=== PATIENT | female | born 1965 | race Caucasian/White ===

== ENCOUNTER → 2020-05-01 | Outpatient (CLI) | payer OTHER ==
[2020-05-01 14:35] LABS: BASOPHILS ABSOLUTE AUTO 0.04 K/mm3 (0.00-0.23); BASOPHILS PERCENT AUTO 1 % (0-2); EOSINOPHILS ABSOLUTE AUTO 0.11 K/mm3 (0.00-0.68); EOSINOPHILS PERCENT AUTO 2 % (0-6); Hematocrit 44.2 % (33.0-51.0); Hemoglobin 14.6 g/dL (11.5-16.0); IMMATURE GRAN ABSOLUTE AUTO 0.01 K/mm3 (0.00-0.10); IMMATURE GRAN PERCENT AUTO 0 % (0-1); LYMPHOCYTES ABSOLUTE AUTO 2.28 K/mm3 (0.84-5.20); LYMPHOCYTES PERCENT AUTO 34 % (21-46); MONOCYTES ABSOLUTE AUTO 0.56 K/mm3 (0.16-1.47); MONOCYTES PERCENT AUTO 8 % (4-13); Mean Corpuscular HGB 31.1 pg (26.0-34.0); Mean Corpuscular Volume 94 fL (80-100); Mean Platelet Volume 11.4 fL (9.1-12.4); NEUTROPHILS ABSOLUTE AUTO 3.77 K/mm3 (1.96-9.15); NEUTROPHILS PERCENT AUTO 56 % (41-73); Platelet Count 212 K/mm3 (150-400); RDW Coefficient Variation 12.2 % (11.7-14.2); RDW Standard Deviation 42.4 fL (35.1-46.3); Red Blood Cell Count 4.69 M/mm3 (3.80-5.20); White Blood Cell Count 6.77 K/mm3 (4.00-11.30)
[2020-05-01 15:07] LABS: Alanine Aminotransfer (ALT/SGP 43 U/L (12-78); Albumin, Blood 3.9 g/dL (3.4-5.0); Albumin/Globulin Ratio 1.1 (0.8-1.8); Alk Phos 103 U/L (50-136); Anion Gap 6 mmol/L (6-16); Aspartate Aminotrans (AST/SGOT 20 U/L (12-37); Bilirubin, Total 0.5 mg/dL (0.1-1.0); Blood Urea Nitrogen 9 mg/dL (8-24); Bun/Creatinine Ratio 14.5 (12.0-20.0); CO2, Blood 27 mmol/L (21-32); Calcium, Blood 8.9 mg/dL (8.5-10.1); Chloride, Blood 107 mmol/L (98-108); Creatinine, Blood 0.62 mg/dL (0.40-1.00); Globulin, Blood 3.5 g/dL (2.2-4.0); Glomerular Filtration Rate >60 (60-); Glucose, Blood 109 mg/dL (70-99); Potassium, Blood 3.7 mmol/L (3.5-5.5); Sodium, Blood 140 mmol/L (136-145); Total Protein, Blood 7.4 g/dL (6.4-8.2)
== END | disposition home or self-care (01) ==
LOC: LAB 14:19 → LAB SHORT 14:19
PROVIDERS: Physician Assistant
DX: M53.83 Other specified dorsopathies, cervicothoracic region (principal); M54.2 Cervicalgia
CPT/HCPCS: 80053; 84443; 85025

== ENCOUNTER 2021-07-08 13:11 | Inpatient (IN) | payer OTHER ==
[~2021-07-08] VITALS: Ht 170.2 cm; Wt 94.8 kg
[2021-07-08 14:03] LABS: BASOPHILS ABSOLUTE AUTO 0.03 K/mm3 (0.00-0.23); BASOPHILS PERCENT AUTO 0 % (0-2); EOSINOPHILS ABSOLUTE AUTO 0.08 K/mm3 (0.00-0.68); EOSINOPHILS PERCENT AUTO 1 % (0-6); Hematocrit 41.6 % (33.0-51.0); Hemoglobin 14.4 g/dL (11.5-16.0); IMMATURE GRAN ABSOLUTE AUTO 0.03 K/mm3 (0.00-0.10); IMMATURE GRAN PERCENT AUTO 0 % (0-1); LYMPHOCYTES ABSOLUTE AUTO 0.93 K/mm3 (0.84-5.20); LYMPHOCYTES PERCENT AUTO 10 % (21-46); MONOCYTES ABSOLUTE AUTO 0.78 K/mm3 (0.16-1.47); MONOCYTES PERCENT AUTO 8 % (4-13); Mean Corpuscular HGB 31.3 pg (26.0-34.0); Mean Corpuscular HGB Conc 34.6 g/dL (31.5-36.5); Mean Corpuscular Volume 90 fL (80-100); Mean Platelet Volume 10.3 fL (9.1-12.4); NEUTROPHILS ABSOLUTE AUTO 7.88 K/mm3 (1.96-9.15); NEUTROPHILS PERCENT AUTO 81 % (41-73); Platelet Count 216 K/mm3 (150-400); RDW Coefficient Variation 12.6 % (11.7-14.2); RDW Standard Deviation 41.6 fL (35.1-46.3); White Blood Cell Count 9.73 K/mm3 (4.00-11.30)
[2021-07-08 14:24] LABS: Alanine Aminotransfer (ALT/SGP 41 U/L (12-78); Albumin, Blood 2.7 g/dL (3.4-5.0); Albumin/Globulin Ratio 0.6 (0.8-1.8); Alk Phos 124 U/L (50-136); Anion Gap 9 mmol/L (6-16); Aspartate Aminotrans (AST/SGOT 24 U/L (12-37); Bilirubin, Total 1.4 mg/dL (0.1-1.0); Blood Urea Nitrogen 8 mg/dL (8-24); CO2, Blood 25 mmol/L (21-32); Calcium, Blood 8.6 mg/dL (8.5-10.1); Chloride, Blood 101 mmol/L (98-108); Creatinine, Blood 0.53 mg/dL (0.40-1.00); Globulin, Blood 4.5 g/dL (2.2-4.0); Glomerular Filtration Rate >60 (60-); Glucose, Blood 252 mg/dL (70-99); Potassium, Blood 3.4 mmol/L (3.5-5.5); Sodium, Blood 135 mmol/L (136-145); Total Protein, Blood 7.2 g/dL (6.4-8.2); Troponin I <0.015 ng/mL (0.000-0.040)
--- NOTE | 2021-07-09 04:52 | NUR ---
SHIFT SUMMARY A/OX4, IND TO BATHROOM. PLEASANT AND COOPERATIVE WITH CARE. CURRENTLY ON RA. VSS, NO ACUTE CHANGES AT THIS TIME. BED IN LOWEST POSITION WITH CALL LIGHT IN REACH. WILL CONTINUE TO MONITOR AND REPORT TO ONCOMING RN.
[2021-07-09 05:20] LABS: BASOPHILS ABSOLUTE AUTO 0.01 K/mm3 (0.00-0.23); BASOPHILS PERCENT AUTO 0 % (0-2); EOSINOPHILS PERCENT AUTO 0 % (0-6); Hemoglobin 12.5 g/dL (11.5-16.0); IMMATURE GRAN ABSOLUTE AUTO 0.03 K/mm3 (0.00-0.10); IMMATURE GRAN PERCENT AUTO 0 % (0-1); LYMPHOCYTES ABSOLUTE AUTO 0.96 K/mm3 (0.84-5.20); LYMPHOCYTES PERCENT AUTO 14 % (21-46); MONOCYTES ABSOLUTE AUTO 0.31 K/mm3 (0.16-1.47); MONOCYTES PERCENT AUTO 4 % (4-13); Mean Corpuscular HGB 31.3 pg (26.0-34.0); Mean Corpuscular HGB Conc 33.8 g/dL (31.5-36.5); Mean Corpuscular Volume 93 fL (80-100); NEUTROPHILS ABSOLUTE AUTO 5.71 K/mm3 (1.96-9.15); NEUTROPHILS PERCENT AUTO 81 % (41-73); Platelet Count 186 K/mm3 (150-400); RDW Coefficient Variation 12.6 % (11.7-14.2); RDW Standard Deviation 41.7 fL (35.1-46.3); White Blood Cell Count 7.02 K/mm3 (4.00-11.30)
[2021-07-09 06:12] LABS: Alanine Aminotransfer (ALT/SGP 38 U/L (12-78); Albumin, Blood 2.4 g/dL (3.4-5.0); Albumin/Globulin Ratio 0.6 (0.8-1.8); Alk Phos 115 U/L (50-136); Anion Gap 9 mmol/L (6-16); Aspartate Aminotrans (AST/SGOT 20 U/L (12-37); Bilirubin, Total 0.9 mg/dL (0.1-1.0); Blood Urea Nitrogen 9 mg/dL (8-24); Bun/Creatinine Ratio 19.4 (12.0-20.0); CHOL/HDL RATIO 6.2; CO2, Blood 23 mmol/L (21-32); Calcium, Blood 8.3 mg/dL (8.5-10.1); Chloride, Blood 105 mmol/L (98-108); Cholesterol 179 mg/dL (50-200); Creatinine, Blood 0.46 mg/dL (0.40-1.00); Globulin, Blood 4.1 g/dL (2.2-4.0); Glomerular Filtration Rate >60 (60-); Glucose, Blood 269 mg/dL (70-99); HDL Cholesterol 29 mg/dL (>39); Low Density Lipoprotein Chol 117 mg/dL (0-110); Magnesium, Blood 1.9 mg/dL (1.6-2.4); Potassium, Blood 3.9 mmol/L (3.5-5.5); Sodium, Blood 137 mmol/L (136-145); Total Protein, Blood 6.5 g/dL (6.4-8.2); Triglycerides 163 mg/dL (30-160); Very Low Density Lipoprot Chol 32 mg/dL (6-32)
--- NOTE | 2021-07-09 19:12 | NUR ---
SHIFT SUMMARY PT ADMITTED FOR COVID 19 AND IS ON ROOM AIR. SHE HAS PERIODS OF DIZZINESS WHEN GETTING UP AND CALLS TO HAVE A STAND BY ASSIST TO THE BATHROOM. WILL POSSIBLY DC HOME TOMORROW. VSTerry. WILL REPORT TO HAYDE BRAVO.
[2021-07-10 05:08] LABS: Hematocrit 34.3 % (33.0-51.0); Hemoglobin 11.6 g/dL (11.5-16.0); Mean Corpuscular HGB 30.8 pg (26.0-34.0); Mean Corpuscular HGB Conc 33.8 g/dL (31.5-36.5); Mean Corpuscular Volume 91 fL (80-100); Mean Platelet Volume 10.5 fL (9.1-12.4); Platelet Count 194 K/mm3 (150-400); RDW Coefficient Variation 12.4 % (11.7-14.2); RDW Standard Deviation 41.1 fL (35.1-46.3); Red Blood Cell Count 3.77 M/mm3 (3.80-5.20); White Blood Cell Count 8.46 K/mm3 (4.00-11.30)
[2021-07-10 05:48] LABS: Alanine Aminotransfer (ALT/SGP 37 U/L (12-78); Albumin, Blood 2.4 g/dL (3.4-5.0); Albumin/Globulin Ratio 0.6 (0.8-1.8); Alk Phos 99 U/L (50-136); Anion Gap 5 mmol/L (6-16); Aspartate Aminotrans (AST/SGOT 21 U/L (12-37); Bilirubin, Total 0.5 mg/dL (0.1-1.0); Blood Urea Nitrogen 15 mg/dL (8-24); Bun/Creatinine Ratio 25.6 (12.0-20.0); CO2, Blood 27 mmol/L (21-32); Calcium, Blood 8.1 mg/dL (8.5-10.1); Chloride, Blood 106 mmol/L (98-108); Creatinine, Blood 0.59 mg/dL (0.40-1.00); Globulin, Blood 3.7 g/dL (2.2-4.0); Glomerular Filtration Rate >60 (60-); Glucose, Blood 284 mg/dL (70-99); Potassium, Blood 3.7 mmol/L (3.5-5.5); Sodium, Blood 138 mmol/L (136-145); Total Protein, Blood 6.1 g/dL (6.4-8.2)
--- NOTE | 2021-07-10 19:18 | NUR ---
SHIFT SUMMARY NO ACUTE CHANGES THIS SHIFT. PT CONTINUES TO IMPROVE AND REMAINS ON ROOM AIR. WORKED WITH PHYSICAL THERAPY TODAY AND PHYSICAL THERAPY RECOMMENDS USING A CANE TO AMBULATE. VSS. WILL REPORT TO ONCOMING RN.
[2021-07-11] MEDS ORDERED: Acetaminophen650 M1 PO (11:40)
[2021-07-11] MEDS ORDERED: FAMO20 PO (11:41)
[2021-07-11] MEDS ORDERED: SEMGLEE PE100 UNIT/1 SC (11:43)
[2021-07-11] MEDS ORDERED: METF500 PO (11:44)
[2021-07-11] MEDS ORDERED: DEXA6 PO (11:44)
[2021-07-11] MEDS ORDERED: XARELTO20 MG PO ×2 (11:47)
--- NOTE | 2021-07-11 16:01 | NUR ---
DISCHARGE SUMMARY PT A/O X4 AND ADMITTED FOR COVID 19. NOT SHOWING ANY COVID SYMPTOMS. EDUCATED ON INSULIN ADMINISTRATION AND NEW MEDICATOIN MANAGEMENT PRIOR TO DISCHARGE. HARD PRESCRIPTION GIVEN FOR NEW GLUCOMETER AND STRIPS WELL CANE. EDUCATION AND HANDOUTS PROVIDED TO PT. PT VERBALIZED UNDERSTANDING. DC'D HOME.
== END 2021-07-11 14:30 | disposition home health service (06) | DRG 177 ==
LOC: ER 13:11 → MEDS 17:08
PROVIDERS: Physician Assistant; ADMIT Internal Medicine
PROC: 8E0ZXY6 Isolation (ICD-10-PCS; principal; 2021-07-08)
PROC: 3E0333Z Introduction of Anti-inflammatory into Peripheral Vein, Percutaneous Approach (ICD-10-PCS; 2021-07-08)
DX: U07.1 COVID-19 (principal); J12.82 Pneumonia due to coronavirus disease 2019; I26.99 Other pulmonary embolism without acute cor pulmonale; I82.412 Acute embolism and thrombosis of left femoral vein; I82.432 Acute embolism and thrombosis of left popliteal vein; I82.4Z2 Acute embolism and thrombosis of unspecified deep veins of left distal lower extremity; E66.9 Obesity, unspecified; E04.1 Nontoxic single thyroid nodule; K21.9 Gastro-esophageal reflux disease without esophagitis; F41.9 Anxiety disorder, unspecified; E11.9 Type 2 diabetes mellitus without complications; Z88.5 Allergy status to narcotic agent; Z88.2 Allergy status to sulfonamides; Z88.8 Allergy status to other drugs, medicaments and biological substances; Z91.038 Other insect allergy status; Z68.31 Body mass index [BMI] 31.0-31.9, adult; Z90.49 Acquired absence of other specified parts of digestive tract; Z98.890 Other specified postprocedural states
CPT/HCPCS: 36415; 71260; 80053; 80061; 82947; 83036; 83605; 83735; 84484; 85025; 85027; 85379; 86140; 87040; 93005; 93010; 93970; 96374; 96375; 97110; 97162; 99285-25; A9270; J1100; J1650; J2405; J7030; Q9967

== ENCOUNTER 2021-07-15 11:08 | Emergency (ER) | payer OTHER ==
[~2021-07-15] VITALS: Ht 170.2 cm; Wt 99.8 kg
[~2021-07-15 11:08] MED LIST: Acetaminophen650 M1 PO; DEXA6 PO; FAMO20 PO; METF500 PO; SEMGLEE PE100 UNIT/1 SC; XARELTO20 MG PO
[2021-07-15 11:48] LABS: BASOPHILS ABSOLUTE AUTO 0.04 K/mm3 (0.00-0.23); BASOPHILS PERCENT AUTO 0 % (0-2); EOSINOPHILS PERCENT AUTO 0 % (0-6); Hematocrit 40.8 % (33.0-51.0); Hemoglobin 13.8 g/dL (11.5-16.0); IMMATURE GRAN ABSOLUTE AUTO 0.13 K/mm3 (0.00-0.10); IMMATURE GRAN PERCENT AUTO 1 % (0-1); LYMPHOCYTES ABSOLUTE AUTO 1.23 K/mm3 (0.84-5.20); LYMPHOCYTES PERCENT AUTO 11 % (21-46); MONOCYTES ABSOLUTE AUTO 0.77 K/mm3 (0.16-1.47); MONOCYTES PERCENT AUTO 7 % (4-13); Mean Corpuscular HGB 30.7 pg (26.0-34.0); Mean Corpuscular HGB Conc 33.8 g/dL (31.5-36.5); Mean Corpuscular Volume 91 fL (80-100); Mean Platelet Volume 10.9 fL (9.1-12.4); NEUTROPHILS ABSOLUTE AUTO 8.99 K/mm3 (1.96-9.15); NEUTROPHILS PERCENT AUTO 81 % (41-73); Platelet Count 168 K/mm3 (150-400); RDW Coefficient Variation 13.2 % (11.7-14.2); RDW Standard Deviation 43.8 fL (35.1-46.3); Red Blood Cell Count 4.49 M/mm3 (3.80-5.20); White Blood Cell Count 11.16 K/mm3 (4.00-11.30)
[2021-07-15 12:05] LABS: Alanine Aminotransfer (ALT/SGP 58 U/L (12-78); Albumin, Blood 2.6 g/dL (3.4-5.0); Albumin/Globulin Ratio 0.5 (0.8-1.8); Alk Phos 128 U/L (50-136); Anion Gap 8 mmol/L (6-16); Aspartate Aminotrans (AST/SGOT 38 U/L (12-37); Bilirubin, Total 0.9 mg/dL (0.1-1.0); Blood Urea Nitrogen 9 mg/dL (8-24); Bun/Creatinine Ratio 16.2 (12.0-20.0); CO2, Blood 25 mmol/L (21-32); Calcium, Blood 8.6 mg/dL (8.5-10.1); Chloride, Blood 98 mmol/L (98-108); Creatinine, Blood 0.56 mg/dL (0.40-1.00); Glomerular Filtration Rate >60 (60-); Glucose, Blood 253 mg/dL (70-99); Potassium, Blood 3.7 mmol/L (3.5-5.5); Sodium, Blood 131 mmol/L (136-145); Total Protein, Blood 7.6 g/dL (6.4-8.2)
[2021-07-15] MEDS ORDERED: ONDA4ODT MM (14:13)
[2021-07-15] MEDS ORDERED: MAGNESIUM OXID500 MG PO (14:13)
== END 2021-07-15 14:35 | disposition home or self-care (01) ==
LOC: ER 11:08
PROVIDERS: Emergency Medicine
DX: R11.2 Nausea with vomiting, unspecified (principal); R19.7 Diarrhea, unspecified; E11.9 Type 2 diabetes mellitus without complications; I49.3 Ventricular premature depolarization; Z86.718 Personal history of other venous thrombosis and embolism; Z86.711 Personal history of pulmonary embolism; Z91.030 Bee allergy status; Z88.2 Allergy status to sulfonamides; Z88.5 Allergy status to narcotic agent; Z88.1 Allergy status to other antibiotic agents; Z79.899 Other long term (current) drug therapy; Z79.4 Long term (current) use of insulin; Z79.01 Long term (current) use of anticoagulants
CPT/HCPCS: 80053; 82947; 83735; 85025; 96360; 99284-25; A9270; J7030

== ENCOUNTER 2021-07-19 17:03 | Inpatient (IN) | payer OTHER ==
[~2021-07-19] VITALS: Ht 170.2 cm; Wt 93.4 kg
[~2021-07-19 17:03] MED LIST changes: +MAGNESIUM OXID500 MG PO; +ONDA4ODT MM
[2021-07-19 18:36] LABS: Hematocrit 28.4 % (33.0-51.0); Hemoglobin 9.3 g/dL (11.5-16.0); Mean Corpuscular HGB 30.5 pg (26.0-34.0); Mean Corpuscular HGB Conc 32.7 g/dL (31.5-36.5); Mean Corpuscular Volume 93 fL (80-100); Mean Platelet Volume 11.1 fL (9.1-12.4); Platelet Count 224 K/mm3 (150-400); RDW Coefficient Variation 13.7 % (11.7-14.2); RDW Standard Deviation 46.4 fL (35.1-46.3); Red Blood Cell Count 3.05 M/mm3 (3.80-5.20); White Blood Cell Count 12.23 K/mm3 (4.00-11.30)
[2021-07-19 19:03] LABS: Free Thyroxine 1.17 ng/dL (0.70-1.60)
[2021-07-19 19:04] LABS: BAND PERCENT MAN 13 % (0-8); BASOPHILS PERCENT MAN 0 % (0-2); EOSINOPHILS PERCENT MAN 0 % (0-6); LYMPHOCYTES ABSOLUTE MAN 0.61 K/mm3 (0.84-5.20); LYMPHOCYTES PERCENT MAN 5 % (21-46); MONOCYTES PERCENT MAN 9 % (4-13); MYELOCYTE ABSOLUTE MAN 0.12 K/mm3 (0.00-0.00); MYELOCYTE PERCENT MAN 1 % (0-0); NEUTROPHILS ABSOLUTE MAN 10.39 K/mm3 (1.96-9.15); SEG NEUTROPHILS PERCENT MAN 72 % (41-73); TOTAL CELLS COUNTED 100
[2021-07-19 19:06] LABS: Source, Urine Clean Catch
[2021-07-19 19:06] LABS: Thyroid Stimulating Hormone 0.782 uIU/mL (0.360-4.800)
[2021-07-19 19:08] LABS: Bilirubin, Urine Neg (Neg); Blood, Urine 5+ (Neg); Glucose Qualitative, Urine 4+ (Neg); Ketones, Urine 2+ (Neg); Leukocyte Esterase, Urine 3+ (Neg); Nitrite, Urine Pos (Neg); Protein, Urine 3+ (Neg); Urobilinogen, Urine NORM (Normal)
[2021-07-19 19:16] LABS: Appearance, Urine Hazy (Clear); Color, Urine Yellow (P-Yellow)
[2021-07-19 19:17] LABS: Bacteria Many /hpf; Squamous Epithelial Cells Rare /hpf (Few); White Blood Cells, Urine TNTC /hpf (0-5)
[2021-07-19 19:41] LABS: Alanine Aminotransfer (ALT/SGP 122 U/L (12-78); Albumin, Blood 1.9 g/dL (3.4-5.0); Albumin/Globulin Ratio 0.4 (0.8-1.8); Alk Phos 203 U/L (50-136); Anion Gap 11 mmol/L (6-16); Aspartate Aminotrans (AST/SGOT 104 U/L (12-37); Bilirubin, Total 0.9 mg/dL (0.1-1.0); Blood Urea Nitrogen 14 mg/dL (8-24); Bun/Creatinine Ratio 23.6 (12.0-20.0); CO2, Blood 25 mmol/L (21-32); Calcium, Blood 8.8 mg/dL (8.5-10.1); Chloride, Blood 95 mmol/L (98-108); Creatinine, Blood 0.59 mg/dL (0.40-1.00); Globulin, Blood 5.3 g/dL (2.2-4.0); Glomerular Filtration Rate >60 (60-); Glucose, Blood 273 mg/dL (70-99); Potassium, Blood 3.7 mmol/L (3.5-5.5); Sodium, Blood 131 mmol/L (136-145); Total Protein, Blood 7.2 g/dL (6.4-8.2)
[2021-07-20 04:52] LABS: Hematocrit 31.5 % (33.0-51.0); Hemoglobin 10.4 g/dL (11.5-16.0); Mean Corpuscular HGB 30.5 pg (26.0-34.0); Mean Corpuscular Volume 92 fL (80-100); Mean Platelet Volume 10.3 fL (9.1-12.4); Platelet Count 141 K/mm3 (150-400); RDW Coefficient Variation 13.9 % (11.7-14.2); RDW Standard Deviation 47.1 fL (35.1-46.3); Red Blood Cell Count 3.41 M/mm3 (3.80-5.20); White Blood Cell Count 8.57 K/mm3 (4.00-11.30)
[2021-07-20 05:19] LABS: Alanine Aminotransfer (ALT/SGP 94 U/L (12-78); Albumin, Blood 2.1 g/dL (3.4-5.0); Albumin/Globulin Ratio 0.5 (0.8-1.8); Alk Phos 156 U/L (50-136); Anion Gap 7 mmol/L (6-16); Aspartate Aminotrans (AST/SGOT 81 U/L (12-37); Blood Urea Nitrogen 14 mg/dL (8-24); Bun/Creatinine Ratio 23.6 (12.0-20.0); CO2, Blood 25 mmol/L (21-32); Calcium, Blood 7.7 mg/dL (8.5-10.1); Chloride, Blood 102 mmol/L (98-108); Creatinine, Blood 0.59 mg/dL (0.40-1.00); Globulin, Blood 4.3 g/dL (2.2-4.0); Glomerular Filtration Rate >60 (60-); Glucose, Blood 207 mg/dL (70-99); Potassium, Blood 3.2 mmol/L (3.5-5.5); Sodium, Blood 134 mmol/L (136-145); Total Protein, Blood 6.4 g/dL (6.4-8.2)
[2021-07-20 05:50] LABS: BAND PERCENT MAN 26 % (0-8); BASOPHILS PERCENT MAN 0 % (0-2); EOSINOPHILS PERCENT MAN 0 % (0-6); LYMPHOCYTES ABSOLUTE MAN 1.54 K/mm3 (0.84-5.20); LYMPHOCYTES PERCENT MAN 18 % (21-46); MONOCYTES ABSOLUTE MAN 0.08 K/mm3 (0.16-1.47); MONOCYTES PERCENT MAN 1 % (4-13); MYELOCYTE ABSOLUTE MAN 0.17 K/mm3 (0.00-0.00); MYELOCYTE PERCENT MAN 2 % (0-0); NEUTROPHILS ABSOLUTE MAN 6.77 K/mm3 (1.96-9.15); SEG NEUTROPHILS PERCENT MAN 53 % (41-73); TOTAL CELLS COUNTED 100
--- NOTE | 2021-07-20 06:23 | NUR ---
SHIFT SUMMARY PATIENT ARRIVED TO ROOM 310 VIA STRETCHER AT 5. SHE IS ALERT AND ORIENTED X4. IS WEAK AND REQUIRES A 1 ASSIST TO THE BEDSIDE COMMODE. MEDICATED PER EMAR FOR PAIN. IV PATENT AND INFUSING. BED IN LOWEST POSITION WITH WHEELS LOCKED. CALL LIGHT WITHIN REACH. REPORT GIVEN TO ONCOMING RN.
--- NOTE | 2021-07-20 08:14 | NUR ---
PT HAS 100.8 TEMP. TYLENOL GIVEN. PT ALSO HAD O2 SATS AT 87% ON RA. REAPPLIED O2 AT 2.5 LPM VIA NC. O2 SATS AT 97%.
--- NOTE | 2021-07-20 18:02 | NUR ---
TELE REPORTED PT HAD A RUN WITH BIGEMENY AND PVC'S. PT ASYMPTOMATIC AT THIS TIME. DENIES CP AND IS IN NO APPARENT DISTRESS.
--- NOTE | 2021-07-20 19:49 | NUR ---
SHIFT SUMMARY: PT A/O X 3. PT HAD NO ACUTE EVENTS TODAY. TYLENOL GIVEN FOR FEVER THIS AM AND WAS EFFECTIVE. PT TOLERATING VANCO. PT REPORTED HEADACHE TODAY WHICH TYLENOL WAS GIVEN FOR AND EFFECTIVE. PT DID NOT EAT WELL TODAY BUT DRANK FLUIDS WELL. URINE RUSTY COLORED.
--- NOTE | 2021-07-21 04:44 | NUR ---
SHIFT SUMMARY ADMITTED FOR SEPSIS/UTI. FULL CODE. PT GIVEN A DOSE OF IV ANTIBIOTICS. PT RESTED ALL NIGHT. COMPLAINED OF CHRONIC NECK PAIN BUT WAS ASLEEP WHEN THIS RN ASKED ABOUT PAIN MEDICATION. NO OTHER CONCERNS THIS SHIFT.
[2021-07-21 15:52] LABS: Vancomycin, Trough 13.7 ug/mL (5.0-10.0)
--- NOTE | 2021-07-21 18:05 | NUR ---
SHIFT SUMMARY: PT A/O X 3 STANDBY ASSIST TO BSC. PT HAD TEMPERATURE OF 102.5 TODAY. TYLENOL EFFECTIVE. PT CONTINUES TO HAVE C/O NECK PAIN WITH TYLENOL EFFECTIVE IN TREATING PAIN. NO OTHER ACUTE CONCERNS AT THIS TIME.
[2021-07-22 05:12] LABS: Hemoglobin 10.3 g/dL (11.5-16.0); Mean Corpuscular HGB 30.6 pg (26.0-34.0); Mean Corpuscular HGB Conc 33.2 g/dL (31.5-36.5); Mean Corpuscular Volume 92 fL (80-100); Mean Platelet Volume 11.6 fL (9.1-12.4); Platelet Count 116 K/mm3 (150-400); RDW Coefficient Variation 13.8 % (11.7-14.2); RDW Standard Deviation 46.7 fL (35.1-46.3); Red Blood Cell Count 3.37 M/mm3 (3.80-5.20); White Blood Cell Count 6.58 K/mm3 (4.00-11.30)
--- NOTE | 2021-07-22 05:12 | NUR ---
SHIFT SUMMARY PT HAS BEEN RESTLESS THIS SHIFT, SLEEPING ON AND OFF. THE MAJORITY OF THE TIME WHEN I ROUND ON PT SHE DECLINES NEEDS. INTERMITTENT NAUSEA THIS SHIFT WITH DRY HEAVES, MEDICATED WITH ZOFRAN. PT IS VERY WEAK AND REQUIRES ASSISTANCE TO THE BEDSIDE COMMODE. IV ANITIBIOTICS CONTINUED ORDERED. VITALS STABLE AND TRENDING AROUND PT BASELINE SINCE ADMISSION. NO HIGH FEVERS THIS SHIFT. PT A/OX4, BUT IS SLOW IN HER RESPONSES. NO ACUTE CHANGES OVERNIGHT. BED IN LOWEST POSITION, CALL LIGHT WITHIN REACH.
[2021-07-22 05:35] LABS: Albumin, Blood 1.8 g/dL (3.4-5.0); Anion Gap 7 mmol/L (6-16); Blood Urea Nitrogen 11 mg/dL (8-24); Bun/Creatinine Ratio 19.2 (12.0-20.0); CO2, Blood 28 mmol/L (21-32); Calcium, Blood 8.1 mg/dL (8.5-10.1); Chloride, Blood 102 mmol/L (98-108); Creatinine, Blood 0.57 mg/dL (0.40-1.00); Glomerular Filtration Rate >60 (60-); Glucose, Blood 273 mg/dL (70-99); Magnesium, Blood 2.1 mg/dL (1.6-2.4); Phosphorus, Blood 2.5 mg/dL (2.5-4.9); Potassium, Blood 2.8 mmol/L (3.5-5.5); Sodium, Blood 137 mmol/L (136-145)
[2021-07-22 06:45] LABS: BAND PERCENT MAN 6 % (0-8); BASOPHILS PERCENT MAN 0 % (0-2); EOSINOPHILS ABSOLUTE MAN 0.06 K/mm3 (0.00-0.68); EOSINOPHILS PERCENT MAN 1 % (0-6); LYMPHOCYTES ABSOLUTE MAN 0.46 K/mm3 (0.84-5.20); LYMPHOCYTES PERCENT MAN 7 % (21-46); MONOCYTES ABSOLUTE MAN 0.06 K/mm3 (0.16-1.47); MONOCYTES PERCENT MAN 1 % (4-13); MYELOCYTE ABSOLUTE MAN 0.06 K/mm3 (0.00-0.00); MYELOCYTE PERCENT MAN 1 % (0-0); NEUTROPHILS ABSOLUTE MAN 5.92 K/mm3 (1.96-9.15); SEG NEUTROPHILS PERCENT MAN 84 % (41-73); TOTAL CELLS COUNTED 100
[2021-07-22 16:13] LABS: Vancomycin, Trough 14.4 ug/mL (5.0-10.0)
--- NOTE | 2021-07-22 19:29 | NUR ---
SHIFT SUMMARY PT A/O X3; PLEASANT AND COOPERATIVE WITH CARE. GENERALIZED WEAKNESS. LOW POTASSIUM NOTED AND IV POTASSIUM GIVEN T/O THE DAY. REPEAT LABS TO BE DRAWN IN THE MORNING TO DETERMINE IF VIRY IS BENEFICIAL. VSS. WILL REPORT TO ONCOMING RN.
--- NOTE | 2021-07-22 23:13 | NUR ---
DR RUBIO called to update on 3rd positive BC PT on Vanco per pharmacy. Prior positive BC x 2 Staph Aureus & urine culture previous grew EColi & Staph aureus. DR shermany to hospitalist tomorrow ? about ecoli in urine additional abx? PT NPO to discuss need for VIRY per MD order.
--- NOTE | 2021-07-23 00:22 | NUR ---
2nd positive BC on septic PT with 3 other positive BC & urine culture Ecoli & staph aureus. Obtained order from [facility] to possibly add abx to tx ECOLI.
[2021-07-23 05:32] LABS: Hematocrit 30.4 % (33.0-51.0); Hemoglobin 10.1 g/dL (11.5-16.0); Mean Corpuscular HGB 30.1 pg (26.0-34.0); Mean Corpuscular HGB Conc 33.2 g/dL (31.5-36.5); Mean Corpuscular Volume 91 fL (80-100); Mean Platelet Volume 12.3 fL (9.1-12.4); Platelet Count 111 K/mm3 (150-400); RDW Standard Deviation 46.6 fL (35.1-46.3); Red Blood Cell Count 3.35 M/mm3 (3.80-5.20); White Blood Cell Count 7.35 K/mm3 (4.00-11.30)
[2021-07-23 05:51] LABS: Albumin, Blood 1.7 g/dL (3.4-5.0); Anion Gap 5 mmol/L (6-16); Blood Urea Nitrogen 10 mg/dL (8-24); Bun/Creatinine Ratio 18.4 (12.0-20.0); CO2, Blood 28 mmol/L (21-32); Calcium, Blood 7.3 mg/dL (8.5-10.1); Chloride, Blood 102 mmol/L (98-108); Creatinine, Blood 0.54 mg/dL (0.40-1.00); Glomerular Filtration Rate >60 (60-); Glucose, Blood 297 mg/dL (70-99); Phosphorus, Blood 3.3 mg/dL (2.5-4.9); Sodium, Blood 135 mmol/L (136-145)
[2021-07-23 05:59] LABS: BAND PERCENT MAN 23 % (0-8); BASOPHILS PERCENT MAN 0 % (0-2); EOSINOPHILS ABSOLUTE MAN 0.07 K/mm3 (0.00-0.68); EOSINOPHILS PERCENT MAN 1 % (0-6); LYMPHOCYTES % ATYPICAL MANUAL 1 % (0-0); LYMPHOCYTES ABSOLUTE MAN 0.36 K/mm3 (0.84-5.20); LYMPHOCYTES PERCENT MAN 4 % (21-46); METAMYELOCYTE ABSOLUTE MAN 0.07 K/mm3 (0.00-0.00); METAMYELOCYTE PERCENT MAN 1 % (0-0); MONOCYTES ABSOLUTE MAN 0.29 K/mm3 (0.16-1.47); MONOCYTES PERCENT MAN 4 % (4-13); NEUTROPHILS ABSOLUTE MAN 6.54 K/mm3 (1.96-9.15); SEG NEUTROPHILS PERCENT MAN 66 % (41-73); TOTAL CELLS COUNTED 100
--- NOTE | 2021-07-23 07:30 | NUR ---
pt WITH 2 POSITIVE BLOOD CULTURES CONTINUES ON VANCO PER PHARMECY. hx OF COVID jun 18 2021 & PE. ROOM AIR CO HEADACHE RELIEVED BY 650 MG TYLENOL
--- NOTE | 2021-07-23 18:36 | NUR ---
PATIENT IS ALERT AND ORIENTED. SHE IS ANXIOUS. PATIENT SHOWERED TODAY. ON RA. PLAN IS FOR A VIRY TOMORROW MORNING. NPO AT MIDNIGHT. DR. MELTON SAW THE PATIENT TODAY. WILL CONTINUE TO MONITOR
--- NOTE | 2021-07-23 20:16 | NUR ---
PT had minimal oral intake for dinner, took few hundred ml juice. She was changed from vancomycin per pharmacy to ancef q 8 to tx positive blood cultures x 4. She will be npo at midnight for VIRY. PT had covid 19 beginning of June 2021 with PE PT says originated from lt le DVT. Room air. no fever. Discussed possible move to noncovid 19 care area & reassurance staff would provide good care. Has supplement at bedside, fluids encouraged.
--- NOTE | 2021-07-24 04:45 | NUR ---
55 year old PT with hx of PE in Jun 2021 when she had covid 19 continues to maintain room air sats greater than 95% at rest. She has had multiple positive blood cultures staph aureus, & urine cultures shows ecoli. PT has no solid oral intake drinks sips & NPO at midnight. She continues with flat affect withdrawn but able to communicate. PT stripped off gown several times. Tylenol given x 1 with helpful effect for upper gi pain after taking orange juice & icecream.NPO forTEE. Weak & deconditioned up with assist only. Very poor appetite sips bites only. ID MD changed to [email or web address] from vanco to tx positive blood cultures.
[2021-07-24 10:24] LABS: Base Excess Venous -14.5 mmol/L; Bicarbonate Venous 13.8 mmol/L (24.0-30.0); PCO2 Venous 34.7 mmHg (38-42); PO2 Venous 79.7 mmHg (38-42)
[2021-07-24 10:24] LABS: Hematocrit 22.1 % (33.0-51.0); Hemoglobin 6.9 g/dL (11.5-16.0); Mean Corpuscular HGB 30.3 pg (26.0-34.0); Mean Corpuscular HGB Conc 31.2 g/dL (31.5-36.5); Mean Platelet Volume 12.4 fL (9.1-12.4); Platelet Count 171 K/mm3 (150-400); RDW Coefficient Variation 14.5 % (11.7-14.2); RDW Standard Deviation 50.6 fL (35.1-46.3); Red Blood Cell Count 2.28 M/mm3 (3.80-5.20); White Blood Cell Count 15.79 K/mm3 (4.00-11.30)
[2021-07-24 10:46] LABS: Mean Corpuscular Volume 97 fL (80-100)
[2021-07-24 11:45] LABS: SARS-Cov-2 (COVID-19) PCR, MMC POSITIVE (NEGATIVE)
[2021-07-24 12:27] LABS: Percent Saturation 84.6 % (15.0-50.0)
[2021-07-24 13:39] LABS: Stool Occult Blood Guaiac 1 Neg (Neg)
--- NOTE | 2021-07-24 15:00 | NUR ---
pt arrived to pcu via bed from medical floor, reprot was obtained, she is moved to a pcu bed, she is confused, mumbling incoherently, she is on 3 liters 02 via n/c, sats in the high 90's, having a difficult time obtaining b/p's, are trending down, resp in the thirties to fourties, heart rate in the 120's, abd round soft doesn't appear to be tender at this time, quinn cath placed without diff, skin is very pale, prbc infusing at this time, started ns, new iv placed to right ac, will go down for a ct of abd, Dr. Whitlock was consulted, malted milk supervisor came to see her and is sending her to icu after ct, will stay with pt until leaves for ct.
[2021-07-24 15:35] LABS: Hematocrit 21.2 % (33.0-51.0)
[2021-07-24 16:11] LABS: Albumin, Blood 1.7 g/dL (3.4-5.0); Albumin/Globulin Ratio 0.5 (0.8-1.8); Bilirubin, Total 0.5 mg/dL (0.1-1.0); Bun/Creatinine Ratio 19.3 (12.0-20.0); Calcium, Blood 7.5 mg/dL (8.5-10.1); Creatinine, Blood 1.35 mg/dL (0.40-1.00); Globulin, Blood 3.7 g/dL (2.2-4.0); Potassium, Blood 3.4 mmol/L (3.5-5.5); Total Protein, Blood 5.4 g/dL (6.4-8.2); Troponin I 0.143 ng/mL (0.000-0.040)
--- NOTE | 2021-07-24 17:18 | NUR ---
report given to icu nurse.
--- NOTE | 2021-07-24 17:58 | NUR ---
RECEIVED PT FROM PCU AT 1650. DR. ROMEO AT ROOM TO SEE PT. DR. BALDWIN AT BEDSIDE AND DR. JOSE IN TO EVAL PT. DR. BALDWIN IS TAKING PT TO COMMISS[facility] FOR THE BLIND DIRECTOR FOR EMBOLI OF SPLEEN AND CENTRAL LINE PLACEMENT. PT IS NOT ON LEVOPHED GTT YET. PT IS A/O TO PERSON. MUMBLES INCOHERENTLY. PALE. FINISHED ONE UNIT OF PRBC'S. GOT BOLUS AND IS NOW ON LR AT 150/HR PER DR. ROMEO. PT TAKEN BY JANY [facility] DIRECTOR RN. [facility]IND DIRECTOR WILL BE GIVING ANOTHER UNIT OF PRBC'S, ONE UNIT TAKEN TO [facility]ISS[facility] FOR THE BLIND DIRECTOR. VITALS STABLE SHE LEAVES FOR PROCEDURE.
--- NOTE | 2021-07-24 19:23 | NUR ---
OBATAINED REPORT FROM SHELLY ANDRES PT IS CURRENTLY IN STUDIO RECEPTIONIST AT THIS TIME.
--- NOTE | 2021-07-24 20:22 | NUR ---
PT ARRIVED FROM [facility] MACHINE OPERATOR AT 1954 S/P EMBOLIZATION WITH 3 COILS TO SPLENIC ARTERY. ANGIOSEAL DEVICE TO R GROIN WITH NO OOZING OR HEMATOMA NOTED. CENTRAL LINE ALSO TO R GROIN. PT IS ALERT AND ORIENTED X3 WITH CONFUSION NOTED. 2L OF OXYGEN VIA NC WITH SP02 93%. RR 20-30'S. PERIPHERAL BP'S ARE VERY LABILE; HOWEVER, DR. BALDWIN STATED PT WAS VERY VASOCONSTRICTED WITH CENTRAL SYSTOLIC PRESSURES 140'S. PT CURRETLY FINISHING UP SECOND UNIT OF BLOOD. LR INFUSING AT 150MLS/HR. HR SINUS TACH 120'S WITH FREQUENT PVC'S. MOUTH VERY DRY WITH ORAL CARE AND SWABS GIVEN. LOUISE CATHETER IS PATENT AND DRAINING DARK, RUSTY COLORED URINE TO GRAVITY. CALL LIGHT WITHIN REACH; WILL CONTINUE TO MONITOR.
[2021-07-24 20:59] LABS: Source, Urine Catheter
[2021-07-24 21:00] LABS: Bilirubin, Urine Neg (Neg); Blood, Urine 4+ (Neg); Glucose Qualitative, Urine 3+ (Neg); Ketones, Urine Neg (Neg); Leukocyte Esterase, Urine 1+ (Neg); Nitrite, Urine Neg (Neg); Protein, Urine 2+ (Neg); Specific Gravity, Urine 1.015 (1.003-1.022); Urobilinogen, Urine NORM (Normal)
[2021-07-24 21:09] LABS: Appearance, Urine Hazy (Clear); Bacteria Mod /hpf; Color, Urine Yellow (P-Yellow); Squamous Epithelial Cells Few /hpf (Few)
[2021-07-24 21:17] LABS: Hematocrit 23.4 % (33.0-51.0); Mean Corpuscular HGB 30.4 pg (26.0-34.0); Mean Corpuscular HGB Conc 34.2 g/dL (31.5-36.5); Mean Platelet Volume 12.3 fL (9.1-12.4); Platelet Count 142 K/mm3 (150-400); RDW Coefficient Variation 14.4 % (11.7-14.2); RDW Standard Deviation 45.9 fL (35.1-46.3); Red Blood Cell Count 2.63 M/mm3 (3.80-5.20); White Blood Cell Count 14.65 K/mm3 (4.00-11.30)
[2021-07-24 21:19] LABS: Mean Corpuscular Volume 89 fL (80-100)
[2021-07-24 21:33] LABS: International Normalized Ratio 1.63; Prothrombin Time Results 17.1 Sec (9.7-11.5)
[2021-07-24 21:44] LABS: Albumin, Blood 1.5 g/dL (3.4-5.0); Anion Gap 11 mmol/L (6-16); Blood Urea Nitrogen 29 mg/dL (8-24); Bun/Creatinine Ratio 24.8 (12.0-20.0); CO2, Blood 23 mmol/L (21-32); Calcium, Blood 6.6 mg/dL (8.5-10.1); Chloride, Blood 103 mmol/L (98-108); Creatinine, Blood 1.17 mg/dL (0.40-1.00); Glomerular Filtration Rate 48 (60-); Glucose, Blood 360 mg/dL (70-99); Phosphorus, Blood 5.2 mg/dL (2.5-4.9); Potassium, Blood 3.2 mmol/L (3.5-5.5); Sodium, Blood 137 mmol/L (136-145)
[2021-07-25 04:29] LABS: Hemoglobin 8.8 g/dL (11.5-16.0); Mean Corpuscular HGB 31.1 pg (26.0-34.0); Mean Corpuscular HGB Conc 35.2 g/dL (31.5-36.5); Mean Corpuscular Volume 88 fL (80-100); Mean Platelet Volume 12.5 fL (9.1-12.4); Platelet Count 120 K/mm3 (150-400); RDW Coefficient Variation 14.4 % (11.7-14.2); Red Blood Cell Count 2.83 M/mm3 (3.80-5.20); White Blood Cell Count 17.89 K/mm3 (4.00-11.30)
[2021-07-25 04:45] LABS: Bun/Creatinine Ratio 29.1 (12.0-20.0); Calcium, Blood 6.8 mg/dL (8.5-10.1); Creatinine, Blood 0.96 mg/dL (0.40-1.00); Potassium, Blood 2.9 mmol/L (3.5-5.5)
--- NOTE | 2021-07-25 05:05 | NUR ---
END OF SHIFT SUMMARY PT REMAINS ALERT AND ORIENTED TO SELF, PLACE, DATE/TIME; HOWEVER, PT IS VERY CONFUSED AND FORGETFUL REQUIRING FREQUENT REDIRECTION AND REMINDERS. PT PLACED IN A SOFT WRIST RESTRAINT TO RIGHT WRIST D/T PT REMOVING BP CUFF AND PULLING OFF LEADS CONSISTENTLY. PT APPEARS TO BE HALLUCINATING SECONDARY TO HAVING CONVERSATIONS WITH HER "MOM AND DAD", A WELL A VISUAL HALLUCINATIONS BY VERBALIZING A HAND BEING AN "AISLE WAY". PT HAS RECEIVED A TOTAL OF 3 UNITS OF PRBC'S. LR INFUSING AT 150 ML/HR VIA CENTRAL LINE TO RIGHT GROIN. 40 MEQ'S OF POTASSIUM REPLACED. BP'S ARE STABLE, SEE FLOWSHEET. PT HAS BEEN SINUS TACHYCARDIA WITH FREQENT PVC'S; HR 120'S. PT HAS HAD THREE LARGE BM'S THIS SHIFT THAT ARE WRAY/YELLOW IN COLOR; UNFORMED AND LOOSE. PT C/O MILD ABDOMINAL PAIN; HOWEVER, PER PT IT IS TOLERABLE AND IS JUST THE FEELING OF NEEDING TO HAVE A BM. RIGHT GROIN SITE HAS REMAINED STABLE ALL SHIFT WITH ANGIOSEAL CLOSURE DEVICE UTILIZED; NO OOZING OR HEMATOMA NOTED. PULSES REMAIN PALPABLE AND STRONG; CAP REFILL <3 SEC. LOUISE CATHETER IS PATENT AND DRAINING DARK, RUSTY COLORED URINE. PT HAS REQUIRED 2L OF OXYGEN VIA NC OCCASIONALLY; HOWEVER, PT ALSO NOTED TO REMOVE OXYGEN WELL. OXYGEN SATURATIONS REMAIN ABOVE 90% WITH OCCASIONAL DROPS TO 86%. WILL CONTINUE TO MONITOR UNTIL REPORT IS HANDED OFF TO ONCOMING RN.
--- NOTE | 2021-07-25 10:00 | NUR ---
PT A/O X4. HAS SOME TROUBLE FINDING WORDS AT TIMES. COOPERATIVE WITH CARE GROIN ACCESS SITE STABLE. NO SIGN OF DISTRESS. PT IS BEING TRANSFERED TO PCU 5.
--- NOTE | 2021-07-25 10:55 | NUR ---
REPORT GIVEN TO SHELLY RAYMOND VIA PHONE AT 1032 TAKING REPORT ON BEHALF OF PRIMARY NURSE SHELLY TAYLOR. PT TRANSFERRED FROM ICU 12 TO PCU 5 AT 1050 ON 2LNC WITH KCL IVPB INFUSING AND NO MONITORING. MANDI AND CLAUDIA DENY ADDITIONAL CONCERNS AT THIS TIME; PT REPORTS NO ADDITIONAL COMPLAINTS.
--- NOTE | 2021-07-25 12:11 | NUR ---
ASSUMPTION OF CARE NOTE THIS NURSE ASSUMED CARE AT APPROX. 1000. PT WAS TRANSFERED BY [facility] ICU ASSEMBLY LOADER VIA HOSPITAL BED. PT ARRIVED ON ROOM AIR AND SATURATIONS REMAINED >90%. PT DID EXPERIENCE SHORTNESS OF BREATH W/ ANXIETY AND RESPIRATIONS INCREASED TO LOW 30'S BUT SATURATIONS REMAIN AT >90%. POTASSIUM CHLORIDE AND NS ARE RUNNING CONCURENTLY INTO CENTRAL LINE IN R FEMORAL ACCESS. PT IS ALERT TO SELF AND PLACE BUT DOES EXPERIENCE DISORIENTATION. PER REPORT; PT WAS HALLUCINATING LAST PM. VS AT 1050 ARE FOLLOWS; BP 126/79, RR 30, HR 123, AND TEMP 97.4. PT IS NOW RESTING, CALL LIGHT IN REACH.
[2021-07-25 12:38] LABS: Hematocrit 26.1 % (33.0-51.0); Mean Corpuscular HGB 30.9 pg (26.0-34.0); Mean Corpuscular HGB Conc 34.5 g/dL (31.5-36.5); Mean Corpuscular Volume 90 fL (80-100); Mean Platelet Volume 12.7 fL (9.1-12.4); NRBC ABSOLUTE 0.12 K/mm3 (0.00-0.02); NRBC Auto 0.6 /100 WBC (0.0-0.2); Platelet Count 150 K/mm3 (150-400); RDW Coefficient Variation 14.6 % (11.7-14.2); RDW Standard Deviation 46.9 fL (35.1-46.3); Red Blood Cell Count 2.91 M/mm3 (3.80-5.20); White Blood Cell Count 21.58 K/mm3 (4.00-11.30)
--- NOTE | 2021-07-25 15:16 | NUR ---
CARE NOTE PT IS ALERT TO SELF AND PLACE BUT IS DISORIENTED W/ TIME AND SITUATION. HR REMAINS 120-122, RR IN MID TO HIGH 20'S, SBP RANGES IN 130'S, SPO2 92-95% ON ROOM AIR. AT APPROX. 1500, THIS NURSE ENTERED PATIENT ROOM TO RESPOND TO PUMP ALARM FOR DISTAL OCCLUSION AND IT APPEARED THAT THE PATIENT MAY HAVE REMOVED CENTRAL LINE DRESSING LOCATED ON RIGHT FEMORAL ACCESS SITE. PT DENIED TAKING OFF DRESSING. NEW PICC LINE DRESSING WAS APPLIED AND THE SITE APPEARS WITHIN NORMAL LIMITS. WILL CONTINUE TO REASSESS. PT NOW RESTING, CALL LIGHT IN REACH. WILL CONTINUE TO MONITOR.
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
--- NOTE | 2021-07-25 22:38 | NUR ---
PT IS FOUND TO BE TEARFUL AND STATES SHE IS FEELING ANXIOUS. SHE IS REASSURED, VSS, ENCOURAGED AND COACHED BREATHING, WHICH PT WILL TRY.
[2021-07-26 04:03] LABS: BASOPHILS ABSOLUTE AUTO 0.06 K/mm3 (0.00-0.23); BASOPHILS PERCENT AUTO 0 % (0-2); Hematocrit 20.9 % (33.0-51.0); Hemoglobin 7.2 g/dL (11.5-16.0); LYMPHOCYTES ABSOLUTE AUTO 3.05 K/mm3 (0.84-5.20); LYMPHOCYTES PERCENT AUTO 15 % (21-46); MONOCYTES ABSOLUTE AUTO 0.76 K/mm3 (0.16-1.47); MONOCYTES PERCENT AUTO 4 % (4-13); Mean Corpuscular HGB 31.3 pg (26.0-34.0); Mean Corpuscular HGB Conc 34.4 g/dL (31.5-36.5); Mean Corpuscular Volume 91 fL (80-100); Mean Platelet Volume 12.2 fL (9.1-12.4); NRBC ABSOLUTE 0.29 K/mm3 (0.00-0.02); NRBC Auto 1.4 /100 WBC (0.0-0.2); Platelet Count 141 K/mm3 (150-400); RDW Coefficient Variation 14.9 % (11.7-14.2); RDW Standard Deviation 48.1 fL (35.1-46.3); White Blood Cell Count 20.33 K/mm3 (4.00-11.30)
[2021-07-26 04:04] LABS: EOSINOPHILS ABSOLUTE AUTO 0.04 K/mm3 (0.00-0.68); EOSINOPHILS PERCENT AUTO 0 % (0-6); IMMATURE GRAN ABSOLUTE AUTO 1.38 K/mm3 (0.00-0.10); IMMATURE GRAN PERCENT AUTO 7 % (0-1); NEUTROPHILS ABSOLUTE AUTO 15.04 K/mm3 (1.96-9.15); NEUTROPHILS PERCENT AUTO 74 % (41-73)
[2021-07-26 04:20] LABS: Anion Gap 5 mmol/L (6-16); Blood Urea Nitrogen 21 mg/dL (8-24); Bun/Creatinine Ratio 30.5 (12.0-20.0); CO2, Blood 27 mmol/L (21-32); Calcium, Blood 6.7 mg/dL (8.5-10.1); Chloride, Blood 106 mmol/L (98-108); Creatinine, Blood 0.69 mg/dL (0.40-1.00); Glomerular Filtration Rate >60 (60-); Glucose, Blood 292 mg/dL (70-99); Potassium, Blood 3.2 mmol/L (3.5-5.5); Sodium, Blood 138 mmol/L (136-145)
[2021-07-26 05:29] LABS: BAND PERCENT MAN 9 % (0-8); BASOPHILS PERCENT MAN 0 % (0-2); EOSINOPHILS PERCENT MAN 0 % (0-6); LYMPHOCYTES ABSOLUTE MAN 2.03 K/mm3 (0.84-5.20); LYMPHOCYTES PERCENT MAN 10 % (21-46); METAMYELOCYTE PERCENT MAN 3 % (0-0); MONOCYTES PERCENT MAN 2 % (4-13); MYELOCYTE PERCENT MAN 1 % (0-0); NEUTROPHILS ABSOLUTE MAN 16.87 K/mm3 (1.96-9.15); PROMYELOCYTE PERCENT MAN 1 % (0-0); SEG NEUTROPHILS PERCENT MAN 74 % (41-73); TOTAL CELLS COUNTED 100
--- NOTE | 2021-07-26 06:51 | NUR ---
PT REMAINS PLEASANTLY CONFUSED AND ANXIOUS AT TIMES. SHE MAINTAINS SPO2 IN THE MID TO HIGH 90'S ON RA, EVEN WHILE SLEEPING. VSS. SHE FREQUENTLY PULLS MONITORS OFF AND CALLS FOR HELP AND THEN ASKS FOR ODD ITEMS. SHE IS EASILY REDIRECTED AND REASSURED. SHE ALSO STATES THAT SHE IS ANXIOUS TO GET HOME, BUT UNDERSTANDS THAT SHE NEEDS TO RECOVER MORE BEFORE THAT CAN HAPPEN. WILL CONTINUE TO MONITOR AND REPORT TO ONCOMING SHIFT.
--- NOTE | 2021-07-26 09:42 | NUR ---
CARE NOTE PATIENT ALERT TO SELF BUT IS HAVING HALLUCINATIONS; PATIENT STATED THAT THERE IS A DOG IN THE ROOM THAT NEEDS TO BE LET OUT. PATIENT IS ALSO DISORIENTED W/ SITUATION; SHE FORGETS THAT SHE HAS A LOUISE PLACED AND HAS USED CALL LIGHT FOR ASSISTANCE TO VOID. THIS NURSE CHECKED LOUISE CATHETER AND LOUISE IS PATENT AND DRAINING W/ GRAVITY. BP REMAINS STABLE BUT HR RANGES IN 109-UPPER 120'S. PATIENT NOW RESTING, CALL LIGHT IN REACH. WILL CONTINUE TO MONITOR.
[2021-07-26 09:47] LABS: Hemoglobin 7.8 g/dL (11.5-16.0)
--- NOTE | 2021-07-26 10:10 | NUR ---
CARE NOTE THIS NURSE CALLED DR JOSE TO UPDATE ON PATIENT LAB RESULTS. DR WAS IN SURGERY AND ANOTHER STAFF MEMBER ANSWERED PHONE TO RELAY MESSAGE. WAS NOTIFIED OF HGB OF 7.8 WELL HCT OF 23.0 THIS NURSE ALSO MENTIONED THAT PATIENT HAS BEEN HALLUCINATING T/O MORNING. SAID THAT SHE WOULD ORDER ANOTHER LAB PANEL TONIGHT.
--- NOTE | 2021-07-26 11:37 | NUR ---
CARE NOTE THIS NURSE CALLED DR COTE APPROX. 1130 TO NOTIFY THAT PATIENTS RIGHT LOWER EXTREMITY WAS WARM TO TOUCH AND SLIGHTLY SWOLLEN. NO NEW INSTRUCTIONS GIVEN. WILL CONITNUE TO MONITOR.
--- NOTE | 2021-07-26 17:31 | NUR ---
SHIFT SUMMARY PT REMAINS ALERT TO SELF AND FAMILY BUT HAS BEEN DISORIENTED T/O SHIFT; SHE HAS ALSO HAD HALLUCINATIONS DURING SHIFT. PATIENT WILL GRIMACE OR MOAN BUT WHEN ASKED ABOUT PAIN SHE DENIES PAIN. PATIENT HAS ALSO BEEN SLEEPING FOR MAJORITY OF SHIFT AND HAS NOT HAD AN APPETITE. PATIENT REMAINS ON RA AND SATURATIONS ARE >90%. SBP RANGED 109-148 DURING SHIFT AND HR REMAINS ST 100-120'S. PATIENT DENIED CHEST PAIN/PRESSURE THROUGHOUT SHIFT. RIGHT FEMORAL CENTRAL ACCESS DRESSING REMAINS INTACT AND ACCESS SITE LOOKS CLEAN AND WITHOUT REDNESS. SODIUM CHLORIDE IS RUNNING 10ML/HR KVO. UPON REASSESSMENT AT APPROX. 1700, RIGHT LOWER EXTREMETY REMAINED WARM TO TOUCH W/ 2+ EDEMA. LEFT LOWER EXTREMETY REMAINS COOL TO TOUCH. BOTH LOWER EXTREMETY CAPILLARY REFILL IS 1+. PATIENT ALSO DENIED PAIN UPON PALPATION OF RIGHT LOWER EXTREMETY. NO OTHER ACUTE CHANGES NOTED. WILL CONTINUE TO MONITOR. BED ALARM IS ON, CALL LIGHT IS W/IN REACH.
[2021-07-26 17:35] LABS: C DIFFICILE DNA NEGATIVE (Negative)
[2021-07-26 18:17] LABS: Hematocrit 21.9 % (33.0-51.0); Hemoglobin 7.4 g/dL (11.5-16.0)
[2021-07-27 04:39] LABS: BASOPHILS ABSOLUTE AUTO 0.04 K/mm3 (0.00-0.23); BASOPHILS PERCENT AUTO 0 % (0-2); Hematocrit 20.8 % (33.0-51.0); LYMPHOCYTES ABSOLUTE AUTO 2.32 K/mm3 (0.84-5.20); LYMPHOCYTES PERCENT AUTO 13 % (21-46); MONOCYTES ABSOLUTE AUTO 0.59 K/mm3 (0.16-1.47); MONOCYTES PERCENT AUTO 3 % (4-13); Mean Corpuscular HGB 31.8 pg (26.0-34.0); Mean Corpuscular HGB Conc 33.7 g/dL (31.5-36.5); Mean Corpuscular Volume 95 fL (80-100); Mean Platelet Volume 11.6 fL (9.1-12.4); NRBC ABSOLUTE 0.64 K/mm3 (0.00-0.02); NRBC Auto 3.7 /100 WBC (0.0-0.2); Platelet Count 137 K/mm3 (150-400); RDW Coefficient Variation 15.3 % (11.7-14.2); RDW Standard Deviation 50.1 fL (35.1-46.3); White Blood Cell Count 17.49 K/mm3 (4.00-11.30)
[2021-07-27 04:50] LABS: EOSINOPHILS ABSOLUTE AUTO 0.05 K/mm3 (0.00-0.68); EOSINOPHILS PERCENT AUTO 0 % (0-6); IMMATURE GRAN ABSOLUTE AUTO 1.37 K/mm3 (0.00-0.10); IMMATURE GRAN PERCENT AUTO 8 % (0-1); NEUTROPHILS ABSOLUTE AUTO 13.12 K/mm3 (1.96-9.15); NEUTROPHILS PERCENT AUTO 75 % (41-73)
[2021-07-27 05:25] LABS: BAND PERCENT MAN 5 % (0-8); BASOPHILS PERCENT MAN 0 % (0-2); EOSINOPHILS ABSOLUTE MAN 0.17 K/mm3 (0.00-0.68); EOSINOPHILS PERCENT MAN 1 % (0-6); LYMPHOCYTES ABSOLUTE MAN 0.52 K/mm3 (0.84-5.20); LYMPHOCYTES PERCENT MAN 3 % (21-46); METAMYELOCYTE ABSOLUTE MAN 0.34 K/mm3 (0.00-0.00); METAMYELOCYTE PERCENT MAN 2 % (0-0); MONOCYTES ABSOLUTE MAN 0.17 K/mm3 (0.16-1.47); MONOCYTES PERCENT MAN 1 % (4-13); NEUTROPHILS ABSOLUTE MAN 16.26 K/mm3 (1.96-9.15); SEG NEUTROPHILS PERCENT MAN 88 % (41-73); TOTAL CELLS COUNTED 100
--- NOTE | 2021-07-27 05:38 | NUR ---
Shift Summary Pt has been resting throughout the night, but would not sleep. When the pt was asked about pain/discomfort, they denied but would frequently grimace and moan. Pt is A&O to self, family, and at times to place. Pt would make comments out of context to the current situation and when asked to clarify would make further non-contextual comments. RLE is warm to the touch and edematous. No other acute changes noted.
[2021-07-27 12:10] LABS: Hematocrit 24.4 % (33.0-51.0); Hemoglobin 7.9 g/dL (11.5-16.0)
--- NOTE | 2021-07-27 19:36 | NUR ---
SHIFT SUMMARY PT WAS A/O X2; CONFUSED. PTHR REMAINED 100-120 T/O SHIFT.PT O2 SATS >90 ON RA T/O SHIFT. PT HAD EPISODES OF PULLING OF TELE AND MONITOR LEADS. AT THE END OF SHIFT, PT PULLED OFF STAT LOCK OF LOUISE AND WAS PULLING ON LOUISE TUBE. STAT LOCK RELPLACED; LOUISE INTACT DRAINING TO GRAVITY.PT DOES NOT CALL APPROPIATELY. TOWARDS END OF SHIFT PT APPEARED TO HAVE HALLUCINATIONS AND TALKED TO PEOPLE IN THE ROOM WHO ARE NOT THERE. SISTER CONTACTED TODAY BY THIS RN AND UPDATED.
--- NOTE | 2021-07-27 22:50 | NUR ---
ASSUMED CARE OF PATIENT AT 1900. PATIENT HAD PULLED OFF TELE LEADS AND UPON ENTERING THE ROOM IT WAS KNOWN THAT SHE ALSO PULLED OUT HER LAST REMAINING IV LINE. CALL TO [facility] AND OBTAINED ORDERS FOR SWR TO PROTECT FROM PULLING AT LINES.
--- NOTE | 2021-07-28 05:13 | NUR ---
PATIENT IS A/OX4, BUT CONFUSED AND CALLING OUT WITH JUMBLED SPEECH AT TIMES. PATIENT DOESN'T REMEMBER THE MULTIPLE IV LINES AND TUBES THAT SHE PULLED OUT, AND WAS FOUND PULLING AT HER LOUISE, BL SWR WERE ORDERED AND UTILIZED. PATIENT REPORTS NECK PAIN AND URETHRAL PAIN. LOUISE DRAINING DARK YELLOW/RUSTY URINE. BM X2 BOTH LARGE, BROWN, AND LIQUID (INCONTINENT). PATIENT WAS ON RA MOST OF THE NIGHT, THEN PLACED ON 3L TO REDUCE WORK OF BREATHING. BILATERAL LOWER LUNGS DIMINISHED, NON-PRODUCTIVE & WEAK COUGH. SINUS TACH IN THE 110'S. KRISTIN PG PLACED (3CM OUT) FLUSHES AND DRAWS. WILL REPORT TO DAYSHIFT NURSE.
[2021-07-28 08:47] LABS: Hematocrit 22.5 % (33.0-51.0); Hemoglobin 7.3 g/dL (11.5-16.0)
[2021-07-28 09:06] LABS: Anion Gap 5 mmol/L (6-16); Blood Urea Nitrogen 9 mg/dL (8-24); Bun/Creatinine Ratio 14.2 (12.0-20.0); CO2, Blood 28 mmol/L (21-32); Calcium, Blood 7.4 mg/dL (8.5-10.1); Chloride, Blood 107 mmol/L (98-108); Creatinine, Blood 0.63 mg/dL (0.40-1.00); Glomerular Filtration Rate >60 (60-); Glucose, Blood 214 mg/dL (70-99); Potassium, Blood 3.3 mmol/L (3.5-5.5); Sodium, Blood 140 mmol/L (136-145)
--- NOTE | 2021-07-28 13:10 | NUR ---
UPATE AT 1240, DR JOSE DISCUSSED THE POSSIBLITY OF A DOBHOFF FOR THE PT DUE TO POOR NUTRITIONAL INTAKE, THIS RN WILL DISCUSS THIS WITH DR COTE. DR JOSE ALSO EXPRESSED CONCERN OF SPLENIC INFACT AND STATED THAT THE PT IS AT RISK FOR CVA. WILL CONTINUE TO MONITOR.
--- NOTE | 2021-07-28 13:22 | NUR ---
UPDATE AT [address]TACTED DR COTE ABOUT THE PT'S LACK OF NUTRITION AND INFORMED HIM OF DR JOSE'S SUGGESTION OF A DOBHOFF. DR COTE AGREED TO THE DOBHOFF TO BE ORDERED AND DIETARY TO BE CONTACTED.
--- NOTE | 2021-07-28 18:12 | NUR ---
SHIFT SUMMARY AT THE BEGINNING OF SHIFT, PT WAS A/O X2, PT WAS FORGETFULL AND LETHARGIC. BP STABLE T/O SHIFT WITH A PULSE RANGING 100-110'S AND O2 SATS >90% ON ROOM AIR. PT WAS ABLE TO HAVE 2 CRANBERRY JUICE CUPS TOWARDS END OF SHIFT, OTHERWISE PT HAD POOR NUTRITIONAL INTAKE. PT HAD ABDOMINAL CT PERFORMED, DR OCHOA RECOMMENDED THAT THE PT BE TRANSFERED TO A FACILITY TO PERFORM SURGERY. DR JOSE RECOMMENDED A DOBHOFF FOR NUTRITIONAL NEEDS AND DR COTE AGREED. DOBHOFF ORDERED BUT NOT PLACED DUE TO TRANSFER ORDERS PER CHARGE NURSE BRUCE ORDER. TOWARDS END OF SHIFT, PT A/O X4 AND ABLE TO EXPRESS COMFORT AND NEEDS APPROPIATELY. RESTRAINTS STILL ORDERED FOR WHEN PT SLEEPS DUE TO PULLING OF LINES WHILE SHE SLEEPS, CURRENTLY RESTRAINTS NOT APPLIED. [facility], AWAITING TRANSPORT. .
[2021-07-28 18:54] LABS: SARS-Cov-2 (COVID-19) PCR, MMC POSITIVE (NEGATIVE)
== END 2021-07-28 19:40 | disposition short-term general hospital (02) | DRG 853 ==
LOC: ER 17:03 → ERHOLD 17:04 → MEDS 17:04 → ERHOLD 19:30 → ER 19:30 → MEDS 19:30 → ERHOLD 21:29 → MEDS 21:29 → PCU 07-20 10:26 → ICUW 07-20 10:26 → MEDS 07-20 10:26 → PCU 07-24 14:43 → ICUW 07-24 17:12 → PCU 07-25 10:45
PROVIDERS: Emergency Medicine; Internal Medicine; Internal Medicine Cardiovascular Disease; Internal Medicine Critical Care Medicine; Pharmacist; Surgery; ADMIT Internal Medicine
PROC: 8E0ZXY6 Isolation (ICD-10-PCS; 2021-07-20)
PROC: 04L43DZ Occlusion of Splenic Artery with Intraluminal Device, Percutaneous Approach (ICD-10-PCS; principal; 2021-07-24)
PROC: 30233N1 Transfusion of Nonautologous Red Blood Cells into Peripheral Vein, Percutaneous Approach (ICD-10-PCS; 2021-07-24)
DX: A41.01 Sepsis due to Methicillin susceptible Staphylococcus aureus (principal); R57.8 Other shock; I33.0 Acute and subacute infective endocarditis; I26.90 Septic pulmonary embolism without acute cor pulmonale; G92 Toxic encephalopathy; U07.1 COVID-19; N12 Tubulo-interstitial nephritis, not specified as acute or chronic; D62 Acute posthemorrhagic anemia; N17.9 Acute kidney failure, unspecified; N39.0 Urinary tract infection, site not specified; D73.5 Infarction of spleen; R65.20 Severe sepsis without septic shock; J32.0 Chronic maxillary sinusitis; E86.0 Dehydration; E11.65 Type 2 diabetes mellitus with hyperglycemia; F41.9 Anxiety disorder, unspecified; E04.1 Nontoxic single thyroid nodule; E66.9 Obesity, unspecified; E87.6 Hypokalemia; Z68.34 Body mass index [BMI] 34.0-34.9, adult; D64.9 Anemia, unspecified; Z88.2 Allergy status to sulfonamides; Z88.5 Allergy status to narcotic agent; Z88.8 Allergy status to other drugs, medicaments and biological substances; Z91.030 Bee allergy status; Z79.84 Long term (current) use of oral hypoglycemic drugs; Z79.899 Other long term (current) drug therapy; Z86.718 Personal history of other venous thrombosis and embolism; Z90.49 Acquired absence of other specified parts of digestive tract; Z98.890 Other specified postprocedural states; Z79.01 Long term (current) use of anticoagulants
CPT/HCPCS: 36247; 36415; 36430; 36556; 37244; 70450; 71045; 74174; 74176; 74177; 75726; 75774; 76770; 77001; 80048; 80053; 80069; 80202; 81001; 82272; 82330; 82728; 82803; 82947; 83010; 83540; 83550; 83605; 83735; 84132; 84439; 84443; 84484; 85014; 85018; 85025; 85027; 85384; 85610; 85651; 86140; 86850; 86900; 86901; 86923; 87040; 87077; 87086; 87147; 87186; 87493; 93005; 93010; 93306; 93312; 93325; 93971; 96374; 96375; 99152; 99153; 99285-25; A9270; C1751; C1760; C1769; C1887; C1894; C9113; G0378; J0610; J0690; J0696; J1644; J1720; J1885; J2060; J2250; J2310; J2405; J2543; J3010; J3370; J3480; J7030; J7040; J7050; J7060; J7120; P9016; P9046; Q9967; U0004

== ENCOUNTER 2022-02-17 19:20 | Inpatient (IN) | payer OTHER ==
[~2022-02-17] VITALS: Ht 170.2 cm; Wt 74.4 kg
[~2022-02-17 19:20] MED LIST changes: -ASPI325 PO; -ATOR40TA PO; -BACL10 PO; -BASAGLAR K100 UNIT/1 SC; -DULO60 PO; -ESOM20 PO; -LACT10SY PO; -LAMO25 PO; -METF500C PO
[2022-02-17 20:21] LABS: BASOPHILS ABSOLUTE AUTO 0.04 K/mm3 (0.00-0.23); BASOPHILS PERCENT AUTO 0 % (0-2); EOSINOPHILS ABSOLUTE AUTO 0.01 K/mm3 (0.00-0.68); EOSINOPHILS PERCENT AUTO 0 % (0-6); Hematocrit 42.9 % (33.0-51.0); Hemoglobin 13.5 g/dL (11.5-16.0); IMMATURE GRAN ABSOLUTE AUTO 0.06 K/mm3 (0.00-0.10); IMMATURE GRAN PERCENT AUTO 0 % (0-1); LYMPHOCYTES ABSOLUTE AUTO 1.61 K/mm3 (0.84-5.20); LYMPHOCYTES PERCENT AUTO 10 % (21-46); MONOCYTES ABSOLUTE AUTO 0.67 K/mm3 (0.16-1.47); MONOCYTES PERCENT AUTO 4 % (4-13); Mean Corpuscular HGB Conc 31.5 g/dL (31.5-36.5); Mean Corpuscular Volume 92 fL (80-100); Mean Platelet Volume 9.4 fL (9.1-12.4); NEUTROPHILS ABSOLUTE AUTO 14.15 K/mm3 (1.96-9.15); NEUTROPHILS PERCENT AUTO 86 % (41-73); Platelet Count 381 K/mm3 (150-400); RDW Coefficient Variation 14.6 % (11.7-14.2); RDW Standard Deviation 49.7 fL (35.1-46.3); Red Blood Cell Count 4.65 M/mm3 (3.80-5.20); White Blood Cell Count 16.54 K/mm3 (4.00-11.30)
[2022-02-17 20:45] LABS: Alanine Aminotransfer (ALT/SGP 21 U/L (12-78); Albumin, Blood 3.4 g/dL (3.4-5.0); Alk Phos 122 U/L (50-136); Anion Gap 9 mmol/L (6-16); Aspartate Aminotrans (AST/SGOT 15 U/L (12-37); Bilirubin, Total 0.6 mg/dL (0.1-1.0); Blood Urea Nitrogen 7 mg/dL (8-24); Bun/Creatinine Ratio 14.6 (12.0-20.0); CO2, Blood 26 mmol/L (21-32); Calcium, Blood 9.3 mg/dL (8.5-10.1); Chloride, Blood 107 mmol/L (98-108); Creatinine, Blood 0.48 mg/dL (0.40-1.00); Globulin, Blood 3.4 g/dL (2.2-4.0); Glomerular Filtration Rate >60 (60-); Glucose, Blood 194 mg/dL (70-99); Potassium, Blood 3.1 mmol/L (3.5-5.5); Sodium, Blood 142 mmol/L (136-145); Total Protein, Blood 6.8 g/dL (6.4-8.2)
[2022-02-17 22:59] LABS: Source, Urine Clean Catch
[2022-02-17] MEDS ORDERED: ASPI325 PO (22:59)
[2022-02-17] MEDS ORDERED: ATOR40TA PO (23:00)
[2022-02-17] MEDS ORDERED: BACL10 PO (23:00)
[2022-02-17] MEDS ORDERED: BASAGLAR K100 UNIT/1 SC (23:00)
[2022-02-17] MEDS ORDERED: LACT10SY PO (23:01)
[2022-02-17] MEDS ORDERED: ESOM20 PO (23:01)
[2022-02-17] MEDS ORDERED: DULO60 PO (23:01)
[2022-02-17] MEDS ORDERED: LAMO25 PO (23:02)
[2022-02-17 23:03] LABS: Bilirubin, Urine Neg (Neg); Blood, Urine 3+ (Neg); Glucose Qualitative, Urine 1+ (Neg); Ketones, Urine 3+ (Neg); Leukocyte Esterase, Urine 2+ (Neg); Nitrite, Urine Neg (Neg); Protein, Urine 1+ (Neg); Specific Gravity, Urine 1.015 (1.003-1.022); Urobilinogen, Urine NORM (Normal)
[2022-02-17] MEDS ORDERED: METF500C PO (23:03)
[2022-02-17 23:05] LABS: Appearance, Urine Hazy (Clear); Color, Urine Yellow (P-Yellow)
[2022-02-17 23:11] LABS: Amorphous Mod (0-Heavy); Bacteria Mod /hpf; Mucus Light (0-Heavy); Squamous Epithelial Cells Rare /hpf (Few)
--- NOTE | 2022-02-18 03:42 | NUR ---
ADMIT NOTE HANDOFF GIVEN BY HAIR SPECIALISTSHELLY SON. PT ARRIVED TO FLOOR VIA GURNEY, ACTIVELY VOMITING. NAUSEA MEDS GIVEN ACCORDING TO EMAR WITH GOOD EFFECT. IV FLUIDS INFUSING CONCURRENTLY W/K+ RIDER. TELEMETRY IN PLACE. WATERY CLEAR DIARRHEA NOTED. PT ORIENTED TO UNIT. CALL BUTTON WITHIN REACH.
--- NOTE | 2022-02-18 04:22 | NUR ---
SHIFT SUMMARY ADMITTED FROM ER THIS SHIFT. SHE IS NPO. TELEMETRY: TACHY @ 104 BPM. SHE IS ON XARELTO AT HOME. SHE IS A&O X4 AND COOPERATIVE W/CARE. NS INFUSING ORDERED. K+ RIDERS INFUSING. SHE DENIES PAIN. N/V/D ARE HER MAIN CONCERNS. SHE STATES SHE HAS HAD SIGNIFICANT WEIGHT LOSS IN PAST 3 MONTHS.
[2022-02-18 08:50] LABS: BASOPHILS ABSOLUTE AUTO 0.03 K/mm3 (0.00-0.23); BASOPHILS PERCENT AUTO 0 % (0-2); EOSINOPHILS PERCENT AUTO 0 % (0-6); Hematocrit 39.6 % (33.0-51.0); Hemoglobin 12.6 g/dL (11.5-16.0); IMMATURE GRAN ABSOLUTE AUTO 0.03 K/mm3 (0.00-0.10); IMMATURE GRAN PERCENT AUTO 0 % (0-1); LYMPHOCYTES ABSOLUTE AUTO 2.17 K/mm3 (0.84-5.20); LYMPHOCYTES PERCENT AUTO 18 % (21-46); MONOCYTES ABSOLUTE AUTO 1.22 K/mm3 (0.16-1.47); MONOCYTES PERCENT AUTO 10 % (4-13); Mean Corpuscular HGB 29.6 pg (26.0-34.0); Mean Corpuscular HGB Conc 31.8 g/dL (31.5-36.5); Mean Corpuscular Volume 93 fL (80-100); Mean Platelet Volume 9.7 fL (9.1-12.4); NEUTROPHILS ABSOLUTE AUTO 8.64 K/mm3 (1.96-9.15); NEUTROPHILS PERCENT AUTO 72 % (41-73); Platelet Count 372 K/mm3 (150-400); RDW Coefficient Variation 14.8 % (11.7-14.2); RDW Standard Deviation 50.8 fL (35.1-46.3); Red Blood Cell Count 4.26 M/mm3 (3.80-5.20); White Blood Cell Count 12.09 K/mm3 (4.00-11.30)
[2022-02-18 09:06] LABS: Alanine Aminotransfer (ALT/SGP 21 U/L (12-78); Albumin, Blood 3.3 g/dL (3.4-5.0); Alk Phos 108 U/L (50-136); Anion Gap 8 mmol/L (6-16); Aspartate Aminotrans (AST/SGOT 13 U/L (12-37); Bilirubin, Total 0.5 mg/dL (0.1-1.0); Blood Urea Nitrogen 6 mg/dL (8-24); Bun/Creatinine Ratio 11.4 (12.0-20.0); CO2, Blood 28 mmol/L (21-32); Calcium, Blood 9.2 mg/dL (8.5-10.1); Chloride, Blood 107 mmol/L (98-108); Creatinine, Blood 0.53 mg/dL (0.40-1.00); Globulin, Blood 3.4 g/dL (2.2-4.0); Glomerular Filtration Rate >60 (60-); Glucose, Blood 165 mg/dL (70-99); Potassium, Blood 3.3 mmol/L (3.5-5.5); Sodium, Blood 143 mmol/L (136-145); Total Protein, Blood 6.7 g/dL (6.4-8.2)
--- NOTE | 2022-02-18 19:16 | NUR ---
SHIFT SUMMARY A&O X4. 1PA TO BSC. C/O N/V/D T/O ENTIRE SHIFT. MEDICATED FOR NAUSEA PER MAR. BOWEL CARE STARTED. ENEMA ATTEMPTED BUT VERY LITTLE PROGRESS. ADVANCED TO CLEAR LIQUID DIET BUT PATIENT NOT TOLERATING IT WELL. RECEIVING IV POTASSIUM INSTEAD OF PO DUE TO PATIENT NAUSEA. REPORT GIVEN TO ONCOMING RN.
--- NOTE | 2022-02-19 04:47 | NUR ---
SHIFT SUMMARY ADMITTED FOR BOWEL OBSTRUCTION. FULL CODE. FLEET ENEMA GIVEN THIS SHIFT FOR CONSTIPATION. SHE HAS BEEN ADVANCED TO A CLEAR LIQUID DIET BUT IS NOT TOLERATING IT WELL. SHE DID VOMIT HER PO MEDS AFTER ADMIN. N/V/D. SHE IS ON XARELTO AT HOME. K+ PIGGYBACK INFUSED. TELEMETRY: NSR @ 96 BPM. 1 ASSIST TO BSC. HX: INFECTED HEART VALVE REPLACED 2 MONTHS AGO.
[2022-02-19 05:12] LABS: Hematocrit 38.4 % (33.0-51.0); Hemoglobin 12.4 g/dL (11.5-16.0); Mean Corpuscular HGB 29.7 pg (26.0-34.0); Mean Corpuscular HGB Conc 32.3 g/dL (31.5-36.5); Mean Corpuscular Volume 92 fL (80-100); Mean Platelet Volume 9.9 fL (9.1-12.4); Platelet Count 353 K/mm3 (150-400); RDW Standard Deviation 50.5 fL (35.1-46.3); Red Blood Cell Count 4.18 M/mm3 (3.80-5.20); White Blood Cell Count 9.59 K/mm3 (4.00-11.30)
[2022-02-19 06:49] LABS: Albumin, Blood 3.3 g/dL (3.4-5.0); Anion Gap 5 mmol/L (6-16); Blood Urea Nitrogen 5 mg/dL (8-24); Bun/Creatinine Ratio 10.4 (12.0-20.0); CO2, Blood 31 mmol/L (21-32); Chloride, Blood 104 mmol/L (98-108); Creatinine, Blood 0.48 mg/dL (0.40-1.00); Glomerular Filtration Rate >60 (60-); Glucose, Blood 133 mg/dL (70-99); Phosphorus, Blood 2.6 mg/dL (2.5-4.9); Potassium, Blood 3.1 mmol/L (3.5-5.5); Sodium, Blood 140 mmol/L (136-145)
--- NOTE | 2022-02-19 19:56 | NUR ---
SHIFT SUMMARY PATIENT A&O. VERY EMOTIONAL THIS AM BUT BETTER T/O SHIFT. 1PA TO BSC. BRIEFS IN PLACE, INCONT OF BOWEL. NPO EXCEPT FOR MEDICATIONS. NAUSEA IMPROVED FROM YESTERDAY. SOAP CHELO ENEMA ATTEMPTED MULTIPLE TIMES T/O SHIFT WITH VERY LITTLE RESULTS. PATIENT DID HAVE MULTIPLE COUNTS OF DIARRHEA BUT EPISODES VERY SMALL IN SIZE AND PURE LIQUID. REPORT GIVEN TO ONCOMING RN.
--- NOTE | 2022-02-20 05:32 | NUR ---
FLORAL MERCHANDISER SUMMARY AWAKE AT HS WITH SOME VOICED DISCOMFORT, TYLENOL GIVEN AND SEEMED TO CALM. ASSISTED TO/FROM COMMODE. BOWEL MEDS GIVEN - SEE MAR FOR DETAILS. HAS BEEN RESTING QUIETLY WITH FEW INTERRUPTIONS SINCE. CALL LIGHT IN REACH
[2022-02-20 06:05] LABS: Albumin, Blood 3.3 g/dL (3.4-5.0); Anion Gap 10 mmol/L (6-16); Blood Urea Nitrogen 5 mg/dL (8-24); Bun/Creatinine Ratio 8.7 (12.0-20.0); CO2, Blood 27 mmol/L (21-32); Chloride, Blood 102 mmol/L (98-108); Creatinine, Blood 0.58 mg/dL (0.40-1.00); Glomerular Filtration Rate >60 (60-); Glucose, Blood 115 mg/dL (70-99); Magnesium, Blood 2.2 mg/dL (1.6-2.4); Phosphorus, Blood 3.9 mg/dL (2.5-4.9); Potassium, Blood 2.8 mmol/L (3.5-5.5); Sodium, Blood 139 mmol/L (136-145)
--- NOTE | 2022-02-20 16:42 | NUR ---
DAY SHIFT SUMMARY 56 YR OLD FEMALE PT ADMITTED D/T BOWEL OBSTRUCTION. STARTED ON LACTULOSE THIS SHIFT. OIL ENIMA PERFORMED. PT ABLE TO HAVE SMALL MORE FORMED BOWEL MOVEMENT THIS SHIFT. DIET CHANGED TO CLEAR LIQUID TO BE ADVANCED TOLERATED WITH EACH MEAL. A/O X4. STANDBY ASSIST TO BSC. PT ON RA. CALL LIGHT WITHIN REACH AND ABLE TO CALL APPROPRIATELY.
--- NOTE | 2022-02-21 03:10 | NUR ---
LEASE ADMINISTRATOR SUMMARY MORE ATTENTIVE AT HS WITH STAFF, VOICED APPRECIATION. ABLE TO GET SELF TO BEDSIDE COMMODE AND BACK TO BED WITHOUT ASSISTANCE. HAD BM, NOTE LESS LIQUID. VOICED FEELING BETTER. CONTINUES TO RECEIVE LACULOSE FOR POSSIBLE STOOL IMPACTION. CALL LIGHT IN REACH. RESTING QUIETLY NO NOTED ACUTE DISTRESS AT THIS TIME
[2022-02-21 05:37] LABS: BASOPHILS ABSOLUTE AUTO 0.04 K/mm3 (0.00-0.23); BASOPHILS PERCENT AUTO 1 % (0-2); EOSINOPHILS ABSOLUTE AUTO 0.29 K/mm3 (0.00-0.68); EOSINOPHILS PERCENT AUTO 3 % (0-6); Hematocrit 40.4 % (33.0-51.0); Hemoglobin 12.8 g/dL (11.5-16.0); IMMATURE GRAN ABSOLUTE AUTO 0.02 K/mm3 (0.00-0.10); IMMATURE GRAN PERCENT AUTO 0 % (0-1); LYMPHOCYTES ABSOLUTE AUTO 2.53 K/mm3 (0.84-5.20); LYMPHOCYTES PERCENT AUTO 29 % (21-46); MONOCYTES ABSOLUTE AUTO 0.93 K/mm3 (0.16-1.47); MONOCYTES PERCENT AUTO 11 % (4-13); Mean Corpuscular HGB 29.4 pg (26.0-34.0); Mean Corpuscular HGB Conc 31.7 g/dL (31.5-36.5); Mean Corpuscular Volume 93 fL (80-100); Mean Platelet Volume 9.3 fL (9.1-12.4); NEUTROPHILS ABSOLUTE AUTO 5.02 K/mm3 (1.96-9.15); NEUTROPHILS PERCENT AUTO 57 % (41-73); Platelet Count 304 K/mm3 (150-400); RDW Coefficient Variation 14.6 % (11.7-14.2); RDW Standard Deviation 49.4 fL (35.1-46.3); Red Blood Cell Count 4.35 M/mm3 (3.80-5.20); White Blood Cell Count 8.83 K/mm3 (4.00-11.30)
[2022-02-21 05:50] LABS: Anion Gap 5 mmol/L (6-16); Blood Urea Nitrogen 6 mg/dL (8-24); CO2, Blood 32 mmol/L (21-32); Calcium, Blood 8.8 mg/dL (8.5-10.1); Chloride, Blood 105 mmol/L (98-108); Creatinine, Blood 0.66 mg/dL (0.40-1.00); Glomerular Filtration Rate >60 (60-); Glucose, Blood 96 mg/dL (70-99); Phosphorus, Blood 4.1 mg/dL (2.5-4.9); Potassium, Blood 3.3 mmol/L (3.5-5.5); Sodium, Blood 142 mmol/L (136-145)
[2022-02-21] MEDS ORDERED: DULCOLAX400 MG/5 M PO (13:00)
[2022-02-21] MEDS ORDERED: MIRALAX17 GM PO (13:01)
[2022-02-21] MEDS ORDERED: POTCHL20ER PO (13:02)
[2022-02-21] MEDS ORDERED: METAMUCIL PO (13:03)
--- NOTE | 2022-02-21 16:06 | NUR ---
DISCHARGE SUMMARY IV AND TELE REMOVED PRIOR TO DISCHARGE. DISCHARGE EDUCATION REVIEWED WITH AND SIGNED BY PT. PERSONAL BELONGINGS GATHERED AND TRANSPORTED ALONG WITH PT TO [facility] VIA WHEELCHAIR, TO [facility]. PT MED LIST FAXED TO PHARMACY. PT TO FOLLOW UP PCP.
== END 2022-02-21 14:44 | disposition home or self-care (01) | DRG 389 ==
LOC: ER 19:20 → ERHOLD 19:21 → MEDS 19:21
PROVIDERS: Internal Medicine; Physician Assistant; ADMIT Internal Medicine
DX: K56.41 Fecal impaction (principal); K56.609 Unspecified intestinal obstruction, unspecified as to partial versus complete obstruction; K52.9 Noninfective gastroenteritis and colitis, unspecified; E66.9 Obesity, unspecified; E11.9 Type 2 diabetes mellitus without complications; F32.A Depression, unspecified; D72.828 Other elevated white blood cell count; E87.6 Hypokalemia; F41.9 Anxiety disorder, unspecified; Z95.2 Presence of prosthetic heart valve; Z86.16 Personal history of COVID-19; Z86.711 Personal history of pulmonary embolism; Z79.82 Long term (current) use of aspirin; Z79.899 Other long term (current) drug therapy
CPT/HCPCS: 36415; 74018; 74177; 80048; 80053; 80069; 81001; 82947; 83690; 83735; 83880; 85025; 85027; 87086; 96372; 96374; 96375; 96376; 99285-25; A9270; G0378; J1650; J1815; J2405; J2765; J3480; J7030; J7050; J7060; Q9967

== ENCOUNTER → 2022-02-17 | Outpatient (CLI) | payer OTHER ==
[~2022-02-17] MED LIST changes: +ASPI325 PO; +ATOR40TA PO; +BACL10 PO; +BASAGLAR K100 UNIT/1 SC; +DULO60 PO; +ESOM20 PO; +LACT10SY PO; +LAMO25 PO; +METF500C PO
[2022-02-17 18:10] LABS: BASOPHILS ABSOLUTE AUTO 0.07 K/mm3 (0.00-0.23); BASOPHILS PERCENT AUTO 0 % (0-2); EOSINOPHILS PERCENT AUTO 0 % (0-6); Hematocrit 43.4 % (33.0-51.0); Hemoglobin 14.1 g/dL (11.5-16.0); IMMATURE GRAN ABSOLUTE AUTO 0.11 K/mm3 (0.00-0.10); IMMATURE GRAN PERCENT AUTO 1 % (0-1); LYMPHOCYTES ABSOLUTE AUTO 1.68 K/mm3 (0.84-5.20); LYMPHOCYTES PERCENT AUTO 9 % (21-46); MONOCYTES ABSOLUTE AUTO 1.19 K/mm3 (0.16-1.47); MONOCYTES PERCENT AUTO 6 % (4-13); Mean Corpuscular HGB 29.6 pg (26.0-34.0); Mean Corpuscular HGB Conc 32.5 g/dL (31.5-36.5); Mean Corpuscular Volume 91 fL (80-100); Mean Platelet Volume 9.4 fL (9.1-12.4); NEUTROPHILS ABSOLUTE AUTO 15.88 K/mm3 (1.96-9.15); NEUTROPHILS PERCENT AUTO 84 % (41-73); Platelet Count 376 K/mm3 (150-400); RDW Coefficient Variation 14.6 % (11.7-14.2); RDW Standard Deviation 49.3 fL (35.1-46.3); Red Blood Cell Count 4.76 M/mm3 (3.80-5.20); White Blood Cell Count 18.93 K/mm3 (4.00-11.30)
[2022-02-17 18:19] LABS: Anion Gap 14 mmol/L (6-16); Blood Urea Nitrogen 8 mg/dL (8-24); Bun/Creatinine Ratio 11.9 (12.0-20.0); CO2, Blood 26 mmol/L (21-32); Calcium, Blood 9.8 mg/dL (8.5-10.1); Chloride, Blood 104 mmol/L (98-108); Creatinine, Blood 0.67 mg/dL (0.40-1.00); Glomerular Filtration Rate >60 (60-); Glucose, Blood 202 mg/dL (70-99); Potassium, Blood 3.6 mmol/L (3.5-5.5); Sodium, Blood 144 mmol/L (136-145)
== END | disposition home or self-care (01) ==
LOC: LAB SHORT 18:06
PROVIDERS: Physician Assistant Surgical
DX: R11.2 Nausea with vomiting, unspecified (principal)
CPT/HCPCS: 80048; 85025

== ENCOUNTER → 2023-02-03 | Outpatient (CLI) | payer OTHER ==
[~2023-02-03] MED LIST changes: +ASPI325 PO; +ATOR40TA PO; +BACL10 PO; +BASAGLAR K100 UNIT/1 SC; +DULCOLAX400 MG/5 M PO; +DULO60 PO; +ESOM20 PO; +LACT10SY PO; +LAMO25 PO; +METAMUCIL PO; +METF500C PO; +MIRALAX17 GM PO; +POTCHL20ER PO
[2023-02-07 15:09] LABS: HPV 16 Negative (Negative); HPV 18 Negative (Negative); HPV OTHER HR TYPES Positive (Negative)
== END | disposition home or self-care (01) ==
LOC: LAB SHORT 16:47 → LAB 16:47
PROVIDERS: Physician Assistant
DX: Z01.419 Encounter for gynecological examination (general) (routine) without abnormal findings (principal)
CPT/HCPCS: 87624; 88175

== ENCOUNTER 2023-04-13 07:36 | Day surgery (SDC) | payer OTHER ==
[~2023-04-13] VITALS: Ht 170.2 cm; Wt 94.0 kg
[~2023-04-13 07:36] MED LIST changes: +TUMS500 MG PO
[2023-04-13 07:52] VITALS: BP 152/93
--- NOTE | 2023-04-13 10:45 | NUR ---
PATIENT ARRIVED TO RECOVERY ROOM SITTING UPRIGHT IN RECLINER, CONVERSING APPROPRIATELY. R IJ CHEST WOUND TEGADERM DRESSING INTACT, WITH SOME OOZING NOTED, WILL CONTINUE TO MONITOR. VSS ON ROOM AIR.
[2023-04-13 10:46] VITALS: BP 151/91
[2023-04-13 11:00] VITALS: BP 157/104
--- NOTE | 2023-04-13 11:00 | NUR ---
PATIENT SITTING UPRIGHT IN RECLINER TOLERATING PO INTAKE WELL. R IJ DRESSING INTACT WITH SOME BLOODY OOZING. VSS ON ROOM AIR.
[2023-04-13 11:15] VITALS: BP 131/86
[2023-04-13 11:26] VITALS: BP 131/90
--- NOTE | 2023-04-13 11:36 | NUR ---
PATIENT AMBULATING TO RESTROOM WITHOUT DIFFICULTY. R IJ DRESSING DRY AND INTACT. VSS ON ROOM AIR. DISCHARGE PAPERWORK REVIEWED WITH PATIENT AND DAUGHTER.
--- NOTE | 2023-04-13 11:38 | NUR ---
PATIENT DISCHARGED HOME AT THIS TIME. ALL PATIENT BELONGINGS AND PAPERWORK LEFT WITH PATIENT. PIV REMOVED WITHOUT DIFFICULTY, CATHETER INTACT. VSS ON ROOM AIR. PATIENT WHEELED TO HOSPITAL ENTRANCE, DAUGHTER ABLE TO PROVIDE TRANSPORTATION HOME.
== END 2023-04-13 11:30 | disposition home or self-care (01) ==
LOC: MHTC 07:36
DX: Z45.89 Encounter for adjustment and management of other implanted devices (principal); Z95.828 Presence of other vascular implants and grafts; Z86.711 Personal history of pulmonary embolism; Z86.718 Personal history of other venous thrombosis and embolism; E11.9 Type 2 diabetes mellitus without complications; Z88.2 Allergy status to sulfonamides; Z88.5 Allergy status to narcotic agent; Z88.0 Allergy status to penicillin; Z88.8 Allergy status to other drugs, medicaments and biological substances; Z79.82 Long term (current) use of aspirin; Z79.4 Long term (current) use of insulin; Z79.899 Other long term (current) drug therapy
CPT/HCPCS: 76937; 99152; C1769; C1773; C1894; J1644; J2250; J3010; J7030; J7050; Q9967

== ENCOUNTER 2024-05-01 05:46 | Day surgery (SDC) | payer OTHER ==
[~2024-05-01 05:46] MED LIST changes: +PROM25 PO
[2024-05-01] MEDS ORDERED: Tambocor100 MG PO (06:13)
[2024-05-01] MEDS ORDERED: METO50ER PO (06:13)
[2024-05-01] MEDS ORDERED: Benzocaine Oral Spray 0.5ML UD ONE (06:55)
== END 2024-05-01 08:49 | disposition home or self-care (01) ==
LOC: MHTC 05:46
DX: I48.91 Unspecified atrial fibrillation (principal); I48.92 Unspecified atrial flutter; I49.3 Ventricular premature depolarization; I34.0 Nonrheumatic mitral (valve) insufficiency; E87.6 Hypokalemia; I63.9 Cerebral infarction, unspecified; Z95.828 Presence of other vascular implants and grafts
CPT/HCPCS: 92960; 93005; 93010; 93312; 93325; A9270

== ENCOUNTER → 2024-06-04 | Outpatient (CLI) | payer OTHER ==
[~2024-06-04] MED LIST changes: +METO50ER PO; +Tambocor100 MG PO
== END | disposition home or self-care (01) ==
LOC: LAB 10:06 → LAB SHORT 10:06
DX: S81.801A Unspecified open wound, right lower leg, initial encounter (principal)
CPT/HCPCS: 87070; 87075; 87077; 87147; 87186; 87205

== ENCOUNTER 2025-07-22 16:59 | Emergency (ER) | payer OTHER ==
[~2025-07-22] VITALS: Ht 167.6 cm; Wt 58.5 kg
[2025-07-22 17:50] LABS: BASOPHILS ABSOLUTE AUTO 0.04 K/mm3 (0.00-0.23); BASOPHILS PERCENT AUTO 0 % (0-2); EOSINOPHILS ABSOLUTE AUTO 0.12 K/mm3 (0.00-0.68); EOSINOPHILS PERCENT AUTO 1 % (0-6); Hematocrit 37.6 % (33.0-51.0); Hemoglobin 12.5 g/dL (11.5-16.0); IMMATURE GRAN ABSOLUTE AUTO 0.02 K/mm3 (0.00-0.10); IMMATURE GRAN PERCENT AUTO 0 % (0-1); LYMPHOCYTES ABSOLUTE AUTO 2.59 K/mm3 (0.84-5.20); LYMPHOCYTES PERCENT AUTO 28 % (21-46); MONOCYTES ABSOLUTE AUTO 0.66 K/mm3 (0.16-1.47); MONOCYTES PERCENT AUTO 7 % (4-13); Mean Corpuscular HGB Conc 33.2 g/dL (31.5-36.5); Mean Corpuscular Volume 96 fL (80-100); NEUTROPHILS ABSOLUTE AUTO 5.97 K/mm3 (1.96-9.15); NEUTROPHILS PERCENT AUTO 64 % (41-73); NRBC ABSOLUTE 0.00 K/mm3 (0.00-0.02); NRBC Auto 0.0 /100 WBC (0.0-0.2); Platelet Count 253 K/mm3 (150-400); RDW Coefficient Variation 13.3 % (11.7-14.2); RDW Standard Deviation 47.1 fL (35.1-46.3)
[2025-07-22 18:15] LABS: Alanine Aminotransfer (ALT/SGP 52.0 U/L (12-78); Albumin, Blood 4.0 g/dL (3.4-5.0); Albumin/Globulin Ratio 1.4 (0.8-1.8); Anion Gap 6.0 mmol/L (3-11); Aspartate Aminotrans (AST/SGOT 50.0 U/L (12-37); Bilirubin, Total 1.0 mg/dL (0.1-1.0); Blood Urea Nitrogen 14.0 mg/dL (8-24); CO2, Blood 30.0 mmol/L (21-32); Calcium, Blood 9.4 mg/dL (8.5-10.1); Chloride, Blood 108.0 mmol/L (98-108); Creatinine, Blood 0.38 mg/dL (0.40-1.00); Globulin, Blood 2.9 g/dL (2.2-4.0); Glucose, Blood 100.0 mg/dL (70-99); Potassium, Blood 3.6 mmol/L (3.5-5.5); Sodium, Blood 140.0 mmol/L (136-145); Total Protein, Blood 6.9 g/dL (6.4-8.2)
[2025-07-22 19:31] LABS: Source, Urine Clean Catch
[2025-07-22 19:40] LABS: Bilirubin, Urine Neg (Neg); Color, Urine Yellow (P-Yellow); Glucose Qualitative, Urine Neg (Neg); Ketones, Urine 2+ (Neg); Leukocyte Esterase, Urine 3+ (Neg); Protein, Urine 1+ (Neg); Specific Gravity, Urine 1.015 (1.003-1.022); Urobilinogen, Urine NORM (Normal)
[2025-07-22 20:01] LABS: Red Blood Cells, Urine 0-2 /hpf (0-2)
[2025-07-22 20:37] VITALS: BP 134/66
[2025-07-22] MEDS ORDERED: Morphine Sulfate 4 MG/1 ML Injection IV ONE (21:20)
[2025-07-22] MEDS ORDERED: Ondansetron HCl 2 MG / ML 2ML Vial IV ONE (21:45)
[2025-07-22] MEDS ORDERED: CEPH500 PO (21:54)
[2025-07-22] MEDS ORDERED: ONDA4ODT MM (21:54)
== END 2025-07-23 07:11 | disposition home or self-care (01) ==
LOC: ER 16:59
PROVIDERS: Student in an Organized Health Care Education/Training Program
DX: N39.0 Urinary tract infection, site not specified (principal); N23 Unspecified renal colic; E11.9 Type 2 diabetes mellitus without complications; Z86.711 Personal history of pulmonary embolism; Z90.49 Acquired absence of other specified parts of digestive tract; Z88.2 Allergy status to sulfonamides; Z88.5 Allergy status to narcotic agent; Z88.1 Allergy status to other antibiotic agents; Z88.4 Allergy status to anesthetic agent; Z88.8 Allergy status to other drugs, medicaments and biological substances; Z91.030 Bee allergy status; Z79.4 Long term (current) use of insulin; Z79.82 Long term (current) use of aspirin; Z79.01 Long term (current) use of anticoagulants; Z79.899 Other long term (current) drug therapy
CPT/HCPCS: 74177; 80053; 81001; 81025; 83690; 85025; 87086; 96374-59; 96375; 99284-25; A9270; J2270; J2405; Q9967